=== PATIENT | female | born 1950 | race Caucasian/White ===

== ENCOUNTER → 2017-11-12 15:12 | Outpatient (CLI) | payer MEDICARE, BC, SELFPAY ==
--- NOTE | 2017-11-12 15:17 | RAD_ITS ---
STUDY: X-RAY - RIGHT ANKLE REASON FOR EXAM: Female, 67 years old. Right ankle pain. TECHNIQUE: 3 view(s) of the ankle. COMPARISON: None. FINDINGS: Prior open reduction and fixation of the distal fibular fracture utilizing a sideplate and screw fixation device. There is good alignment. Status post screw fixation of the medial malleolar fracture. Degenerative changes of the distal tibial talar joint. There is a 4.7 mm cystic change in the medial aspect of the dome of the talus. An osteochondral defect should be ruled out. The visualized subtalar, talonavicular, calcaneocuboid and tarsal articulations are normal. The soft tissue structures are unremarkable. RAD/Ankle min 3 Views IMPRESSION: Degenerative changes of the ankle. Status post ORIF of the distal fibula and medial malleolar fractures. Electronically Signed: Martin Person MD at 15:52 EST Tel [phone], Service support ,
== END ==
PROVIDERS: Family Provider Family Medicine; PCP Family Medicine; Visit Provider Family Medicine
DX: M25.571 Pain in right ankle and joints of right foot (principal)
CPT/HCPCS: 73610

== ENCOUNTER → 2018-06-05 15:29 | Outpatient (CLI) | payer MEDICARE, BC, SELFPAY | PROVIDERS: Family Provider Family Medicine; PCP Family Medicine; Visit Provider Family Medicine | DX: M54.5 Low back pain (principal) | CPT/HCPCS: 72110 ==

== ENCOUNTER 2018-08-17 04:10 | Emergency (ER) | payer MEDICARE, BC, SELFPAY ==
[2018-08-17 04:11] VITALS: BP 189/87; PULSE 68; RESP 15; TEMP 36.9; O2SAT 98; BMI 27.8
--- NOTE | 2018-08-17 04:33 | ED.VISSUMM ---
- ER Visit Summary Date of Service: 08/17/18 Chief Complaint: Back pain and sciatica History of Present Illness: The patient is a 68 F with a prior history of back pain, herniated disc, prior back surgeries who presents with back pain. 5 days ago she has been working outside. She is developed increased lower back pain since that time. She has had progressive radicular symptoms with pain initially going into the thigh and later down to her knee and now all the way down to her ankle. She also complains of some tingling feeling. She only has radiation down the left leg. She did not have any fall or trauma. She denies fevers abdominal pain urinary retention fecal incontinence. She denies recent illness otherwise. She has tried anti-inflammatories, some leftover prednisone, tramadol at home without significant relief. Physical Examination: Afebrile vitals are normal except blood pressure 189/87 Patient does appear uncomfortable Heart regular rate and rhythm Lungs are clear Abdomen soft Patient has lumbar paraspinal tenderness 5 out of 5 dorsiflexion, plantarflexion, extensor hallucis longus, extremities warm brisk capillary refill Test Results: Not indicated Emergency Department Course and Treatment: She presents with symptoms consistent with lumbar radiculopathy. She does not have signs or symptoms to suggest acute surgical pathology such as cauda equina syndrome or epidural abscess. I do not believe imaging would be of benefit at this time. She was given [place] here and a prescription for short course of the same. We discussed a prednisone burst which I would normally use however she has had mood problems with prednisone and states that she really cannot tolerate doses over 20 mg and that even then she can only take it for a couple of days so we deferred on prednisone. She was advised to follow-up with her primary care physician and she was discharged home. Treatment Plan: [] Disposition: Discharge Impression: Lumbar radiculopathy This note was generated with [employer] dictation software. It may contain incorrect words, spelling, and punctuation that were not noted in review of the chart prior to signing ED Disposition - Plan for ED Patient: Chief Complaint: Other, Pain/Inj Referrals: Josr Bryant MD [Primary Care Provider] -
--- NOTE | 2018-08-17 04:35 | ED.DEP ---
ED Disposition - Plan for ED Patient: Chief Complaint: Other, Pain/Inj Instructions: ED Sciatica Prescriptions: Hydrocodone Bitart/Apap 5-325 [[place] 5MG-325MG] 1 tab PO Q6H PRN PRN 3 Days #10 tab PRN Reason: Pain Referrals: Josr Bryant MD [Primary Care Provider] -
--- NOTE | 2018-08-17 04:36 | ED.DCSUM_ITS ---
- ER Visit Summary Date of Service: 08/17/18 Chief Complaint: Back pain and sciatica History of Present Illness: The patient is a 68 F with a prior history of back pain, herniated disc, prior back surgeries who presents with back pain. 5 days ago she has been working outside. She is developed increased lower back pain since that time. She has had progressive radicular symptoms with pain initially going into the thigh and later down to her knee and now all the way down to her ankle. She also complains of some tingling feeling. She only has radiation down the left leg. She did not have any fall or trauma. She denies fevers abdominal pain urinary retention fecal incontinence. She denies recent illness otherwise. She has tried anti-inflammatories, some leftover prednisone, tramadol at home without significant relief. Physical Examination: Afebrile vitals are normal except blood pressure 189/87 Patient does appear uncomfortable Heart regular rate and rhythm Lungs are clear Abdomen soft Patient has lumbar paraspinal tenderness 5 out of 5 dorsiflexion, plantarflexion, extensor hallucis longus, extremities warm brisk capillary refill Test Results: Not indicated Emergency Department Course and Treatment: She presents with symptoms consistent with lumbar radiculopathy. She does not have signs or symptoms to suggest acute surgical pathology such as cauda equina syndrome or epidural abscess. I do not believe imaging would be of benefit at this time. She was given [place] here and a prescription for short course of the same. We discussed a prednisone burst which I would normally use however she has had mood problems with prednisone and states that she really cannot tolerate doses over 20 mg and that even then she can only take it for a couple of days so we deferred on prednisone. She was adv ised to follow-up with her primary care physician and she was discharged home. Treatment Plan: [] Disposition: Discharge Impression: Lumbar radiculopathy This note was generated with [employer] dictation software. It may contain incorrect words, spelling, and punctuation that were not noted in review of the chart prior to signing ED Disposition - Plan for ED Patient: Chief Complaint: Other, Pain/Inj Referrals: Josr Bryant MD [Primary Care Provider] -
[2018-08-17] MEDS: HYDROcodone Bitartrate/Apap 5/325 Tablet PO (04:38)
[2018-08-17 04:48] VITALS: BP 189/87; PULSE 68; RESP 15; O2SAT 98
== END 2018-08-17 04:48 | disposition home or self-care (01) ==
LOC: ED 04:36
PROVIDERS: Emergency Provider Emergency Medicine; Family Provider Family Medicine; PCP Family Medicine
DX: M54.16 Radiculopathy, lumbar region (principal)
CPT/HCPCS: 99283

== ENCOUNTER → 2018-08-20 06:11 | Outpatient (CLI) | payer MEDICARE, BC, SELFPAY ==
--- NOTE | 2018-08-20 06:38 | MRI_ITS ---
STUDY: MRI LUMBAR SPINE WITHOUT CONTRAST REASON FOR EXAM: Female, 68 years old. Low back pain. TECHNIQUE: Standardized fat and water weighted pulse sequences were obtained in the sagittal and axial planes. COMPARISON: Radiographs of the lumbar spine dated June 05, 2018. FINDINGS: T12-L1: There is mild annular disk bulge and osteophyte complex. There is mild degenerative arthropathy of the facet joints. Bilateral neuroforamina are patent without MR evidence for nerve impingement. There is no significant acquired central canal stenosis. There is straightening of the normal lumbar lordosis. There is no substantial scoliosis. Normal conus medullaris that terminates at the L1 level. L1-2: There is a broad central disc protrusion and osteophyte complex. There is moderate degenerative arthropathy of the facet joints. There is mild central acquired canal stenosis. Neural foramina are bilaterally narrowed without evidence for nerve impingement. L2-3: There is narrowing of the disc with endplate osteophytes. There is a broad central disc protrusion. There is moderate degenerative arthropathy of the facet joints with mild acquired canal stenosis. Neural foramina are moderately narrowed without evidence for nerve impingement. L3-4: Patient appears to have had a left-sided laminectomy of L3. There is irregularity of the endplates that may represent sequela of small Schmorl's nodes. There appears to be a focal left central disc extrusion (and probable free disk fragment) extending posterior to the L4 vertebral body. Estimated size of the disc fragment is approximately 11.8 mm in size. There is moderate left-sided neural foraminal narrowing with potential impingement of the left L3 nerve root at the neural foramen. There is moderate annular disc bulge and osteophyte complex. The right neuroforamen is narrowed without evidence for nerve impingement. L4-5: There is narrowing of the disc. There is a broad central disc protrusion osteophyte complex. There is severe degenerative arthropathy of the facet joints with severe acquired canal stenosis and potential impingement of the cauda equina. The neural foramina are narrowed, severely on the left with potential impingement of left L4 nerve root at the neural foramen. L5-S1: There is narrowing of the disc. There is irregularity of the endplates. There is a broad central disc protrusion osteophyte complex. There is moderate degenerative arthropathy of the facet joints. The neural foramina are narrowed without evidence of nerve impingement. There is no significant central acquired canal stenosis. Normal visualized sacral ala. There appears to be a small lipoma of the filum at L4 level There is mild paraspinal muscular atrophy. There appear to be bilateral parapelvic renal cysts. MRI/Spine Lumbar (Routine) IMPRESSION: 1. Moderately severe multilevel degenerative disc disease and degenerative arthropathy of the lumbar spine with acquired canal stenosis, neural foraminal narrowing and potential nerve impingement as described. 2. Apparent disk extrusion at L3-4 with possible free fragment located posterior to the L4 vertebral body Electronically Signed: Mari Bautista MD at 11:51 EST , Service support ,
== END ==
PROVIDERS: Family Provider Family Medicine; PCP Family Medicine; Referring Provider Nurse Practitioner Family; Visit Provider Nurse Practitioner Family
DX: M54.30 Sciatica, unspecified side (principal)
CPT/HCPCS: 72148

== ENCOUNTER → 2018-10-10 13:13 | Outpatient (CLI) | payer MEDICARE, BC, SELFPAY ==
--- NOTE | 2018-10-10 13:17 | CT_ITS ---
STUDY: CT LUMBAR SPINE WITHOUT CONTRAST REASON FOR EXAM: Female, 68 years old. Back pain and left leg weakness. Patient fell 1 week ago. History of prior lumbar surgery. RADIATION DOSAGE (If Supplied By Facility): CTDIvol = ( 30.00 ) mGy, DLP = ( 847.15 ) mGycm TECHNIQUE: The patient was scanned in a multi detector CT scanner. High resolution transaxial imaging was performed. Images were obtained from T12 to the lower sacrum. Sagittal and coronal images were reconstructed. Individualized dose optimization techniques were used for this CT. COMPARISON: MRI of the lumbar spine of 08/20/2018. FINDINGS: Normal lumbar lordosis. There is mild dextroscoliosis. Is minimal anterolisthesis of L4 respect to L3 and L5. There is endplate spondylosis at multiple levels. There is no evidence of acute compression fracture deformity. The posterior elements appear intact. L1-2: Broad-based discogenic osteophyte formation diffusely indenting the thecal sac. Degenerative changes in facet joints. Borderline central spinal canal. No evidence of bony neural foramina stenosis. L2-3: Severe narrowing of the disc space. Calcification of the ligamenta flava. Broad-based discogenic osteophyte formation. Degenerative changes in facet joints. Narrowing of the central spinal canal and bilateral neural foramina worse on the right side. L3-4: Irregularity of the adjacent endplates. Degenerative changes in the facet joints. Hypertrophy of the ligamentum flavum. Evidence of laminectomy on the left side. Broad-based disc protrusion extending to the lateral recesses bilaterally. Narrowing of the neural foramina bilaterally. Borderline central spinal canal. L4-5: Severe hypertrophic degenerative changes of the facet joints. Broad-based discogenic degenerative osteophyte formation extending to the lateral recesses bilaterally. Hypertrophy of the ligamentum flavum. Severe narrowing of the central spinal canal and bilateral neural foramina. L5-S1: Narrowing of the disc space. Mild broad-based posterior degenerative discogenic osteophyte formation. No evidence of central spinal canal or neural foramina stenosis. Normal visualized paraspinous soft tissue structures. 1. CT/Spine Lumbar without Contrast IMPRESSION: Advanced multilevel degenerative changes of the lumbar spine as described above. No demonstrated acute fracture. If symptoms persist, repeat MRI of the lumbar spine might be of value. Electronically Signed: Clemente Fuentes MD at 13:59 EST Tel , Service support ,
--- NOTE | 2018-10-10 13:19 | RAD_ITS ---
STUDY: X-RAY - LUMBAR SPINE REASON FOR EXAM: Female, 68 years old. Low back pain TECHNIQUE: 3 view(s) of the lumbar spine were obtained. COMPARISON: 06/05/2018 FINDINGS: Normal lumbar lordosis. There is no substantial scoliosis. There is grade 1 spondylolisthesis of L4 on L5 that measures 3.7 mm on extension view and 5.4 mm on flexion view. There is multilevel endplate spondylosis of the lumbar vertebrae. There is multi-level degenerative disc disease with multi-level disc space narrowing. Multilevel facet arthropathy identified. There is atherosclerotic calcification of the abdominal aorta without a demonstrated aneurysm. RAD/L/S Spine Bending Flex/Ext IMPRESSION: 1. Grade 1 spondylolisthesis of L4-L5 mildly worse in flexion view. 2. Multilevel facet arthropathy and degenerative disc disease. Electronically Signed: Brad Leon MD at 8:11 EST , Service support ,
== END ==
PROVIDERS: Family Provider Family Medicine; PCP Family Medicine; Referring Provider Neurological Surgery; Visit Provider Neurological Surgery
DX: M51.26 Other intervertebral disc displacement, lumbar region (principal); M54.16 Radiculopathy, lumbar region
CPT/HCPCS: 72120; 72131

== ENCOUNTER → 2019-02-27 | Outpatient (CLI) | payer MEDICARE, BC, SELFPAY ==
--- NOTE | 2019-02-27 12:48 | BI_ITS ---
MAMMOGRAPHY - BILATERAL SCREENING REASON FOR EXAM: Female, 68 years old. Routine annual screening examination. PERTINENT HISTORY: Grandmother with breast cancer. TECHNIQUE: Digital bilateral breast mj (3D mammographic acquisition) in the CC and MLO projections. 2-D mediolateral oblique (MLO) and craniocaudad (CC) views of both breasts were obtained. CAD: Full Field Digital Mammography with Computer Added Detection was performed. COMPARISON: Comparison is made with prior outside mammogram dated August 20, 2017. FINDINGS: Breast Composition: The breasts are heterogeneously dense, which may obscure small masses. There are no dominant masses or suspicious calcifications. Stable small bilateral axillary lymph nodes. No other significant abnormalities are identified. There has been no significant change since the prior study. BI/SCREENING MAMM (CAD), BILAT IMPRESSION: Stable bilateral screening mammogram. Yearly follow-up mammogram recommended. (A) ASSESSMENT CATEGORY: BIRADS Category 2: Benign. A letter regarding these results will be sent to the patient by the facility within 30 days. Approximately 10% of breast cancers are not detected by mammography. A normal mammogram should not delay biopsy of a clinically suspicious abnormality. [id number] Electronically Signed: Martin Person, at 14:47 EDT , Service support ,
== END | disposition home or self-care (01) ==
LOC: OPBI 12:47
PROVIDERS: Family Provider Family Medicine; PCP Family Medicine; Referring Provider Family Medicine; Visit Provider Family Medicine
DX: Z12.31 Encounter for screening mammogram for malignant neoplasm of breast (principal)
CPT/HCPCS: 77063; 77067

== ENCOUNTER → 2019-03-12 | Outpatient (CLI) | payer MEDICARE, BC, SELFPAY ==
[2019-03-12 17:24] LABS: Absolute Neutrophil Count 4.1 X10^3/uL (2.0-7.7); Basophil# 0.02 X10^3/uL; Basophil% 0.3 % (0-1); Eosinophil# 0.15 X10^3/uL; Eosinophils% 1.9 % (0-5); Hematocrit 40.5 % (37-47); Hemoglobin 13.7 g/dl (12.0-15.0); Lymphocyte % 36.5 % (19-41); Mean Corp Hgb Conc 33.8 g/gl (32-36); Mean Corpuscular Hgb 30.4 pg (27.0-32.0); Mean Corpuscular Volume 89.8 fL (81-99); Mean Platelet Vol. 11.2 fl (6.2-12.0); Monocyte# 0.74 X10^3/uL; Monocyte% 9.3 % (0-10); Neutrophil # 4.13 X10^3/uL (2.7-7.7); Neutrophil % 51.9 % (47-70); Platelet Count 208 K/mm3 (150-450); RBC Distribution Width CV 12.9 % (11.6-14.6); RBC Distribution Width SD 42.1 fl (35.1-43.9); Red Blood Count 4.51 M/mm3 (4.2-5.4)
[2019-03-12 17:26] LABS: POSITIVE COUNT NO; POSITIVE DIFFERENTIAL NO; POSITIVE MORPHOLOGY NO
[2019-03-12 17:41] LABS: ALB/GLOB Ratio 1.1 RATIO (0.9-2.4); AST(SGOT) 16 U/L (15-37); Alanine Aminotransfer ALT/SGPT 31 U/L (13-56); Albumin, Serum 3.7 g/dL (3.2-5.0); Alkaline Phosphatase 90 U/L (45-117); Anion Gap 11 (5-15); BUN 35 mg/dL (7-18); BUN/Creat Ratio 29.9 RATIO (10-20); Calcium,Total 9.1 mg/dL (8.5-10.1); Chloride 108 mmol/L (98-107); Cholesterol 186 mg/dL (200); Creatinine, Serum 1.17 mg/dL (0.55-1.02); EST Glomerular Filtration Rate 49 mL/min (>60); Est Glom Filt Rate - Afr Amer 59 mL/min (>60); Globulin 3.3 g/dL (2.2-4.2); Glucose 120 mg/dL (74-106); High Density Lipoprotein 46 mg/dL; Potassium 4.1 mmol/L (3.5-5.1); Sodium Level 144 mmol/L (136-145); Thyroid Stim Hormone (TSH) 1.68 uIU/mL (0.358-3.74); Triglycerides 267 mg/dL; Very Low Density Lipoprotein 53 mg/dL (5-40)
== END | disposition home or self-care (01) ==
LOC: BFHLAB 15:25
PROVIDERS: Family Provider Family Medicine; PCP Family Medicine; Visit Provider Family Medicine
DX: E11.65 Type 2 diabetes mellitus with hyperglycemia (principal); E03.9 Hypothyroidism, unspecified
CPT/HCPCS: 36415; 80053; 80061; 84443; 85025

== ENCOUNTER 2019-04-27 12:28 | Emergency (ER) | payer MEDICARE, BC, SELFPAY ==
[2019-04-27 12:31] VITALS: BP 151/71; PULSE 82; RESP 17; TEMP 36.7; O2SAT 98; BMI 26.4
--- NOTE | 2019-04-27 14:59 | RAD_ITS ---
STUDY: X-RAY - CERVICAL SPINE REASON FOR EXAM: Female, 68 years old. Worsening neck pain TECHNIQUE: 4 view(s) of the cervical spine were obtained. COMPARISON: 01/31/2017 FINDINGS: Normal anterior atlantoaxial articulation. Normal odontoid process. There is reversal of the normal cervical lordosis. There is multi-level endplate spondylosis. There is multi-level degenerative disc disease with multilevel disc space narrowing. There is left foraminal stenosis at C4-5. There is right foraminal stenosis at C3-4 through C6-7 The soft tissue structures are unremarkable. RAD/Cerv Spine 2 or 3 Views IMPRESSION: Multilevel degenerative disease with foraminal stenosis as outlined above. Reversal of the normal lordotic curvature. No significant interval changes since the prior examination. Electronically Signed: Domenic Cantu MD at 15:31 EDT , Service support ,
--- NOTE | 2019-04-27 15:03 | ED.VISSUMM ---
- ER Visit Summary Date of Service: 04/27/19 Chief Complaint: Back pain History of Present Illness: The patient is a 68 F with a history of chronic back pain who follows with Dr. Song. She typically has lumbar pain and it radiates into her left leg. Today she is having neck pain that is radiating to her left arm. It feels similar to her prior lumbar pain, except now in her arm. She never had this pain before. The pain radiates down her left arm. It feels like her arm is about to burst. Patient denies any chest pain or shortness of breath. Denies any history of heart disease, PE, or aortic disease. Denies any history of lung disease. Denies chest pain or shortness of breath. She has been taking Ultram and hydrocodone with no improvement. She also takes [id number] remedies like Tylenol and Motrin, but they upset her stomach. Denies fevers. Denies any other associated symptoms. Denies trauma. Physical Examination: Afebrile vital signs unremarkable. Patient alert and oriented. No acute distress. Moving without difficulty. Head and neck atraumatic and normal inspection. HEENT exam unremarkable. Neck shows diffuse tenderness with light touch. The remainder of her spine is unremarkable. Patient has subjective decreased sensation in her left arm as well as paresthesias. Pulses strong and equal. Good range of motion. Good strength. Symmetric. Skin appears normal. Heart regular. Lungs clear. Abdomen soft and nontender. Test Results: Cervical x-rays pending. Emergency Department Course and Treatment: Patient has cervical spine pain with symptoms radiating down into her left arm. No trauma. Will check x-rays. Nothing to suggest cardiac, respiratory, or vascular pathology. Will treat with oxycodone while awaiting results. X-ray showed degenerative disc disease. There is multilevel findings. She also has bilateral foraminal stenosis. there is no significant interval change. On reevaluation, patient is slightly better. Will prescribe oxycodone and refer her back to her spine surgeon. She will also follow-up with her PCP. Treatment Plan: As above Disposition: Discharge Impression: 1. Left cervical radiculopathy This note was generated with [employer] software. It may contain incorrect words, spelling, and punctuation that were not noted in review of the chart prior to signing ED Disposition - Plan for ED Patient: Referrals: Miedel,Ene, MD [Primary Care Provider] -
[2019-04-27] MEDS: oxyCODONE 5 MG Tablet 10 MG PO (15:24)
--- NOTE | 2019-04-27 16:05 | ED.DEP ---
ED Disposition - Plan for ED Patient: Instructions: RADICULOPATHY, Cervical Prescriptions: Oxycodone [Oxyir] 5 mg PO Q6H PRN PRN 3 Days #12 tab PRN Reason: Pain Prescription Printed Referrals: Ene Angeles MD [Primary Care Provider] -
[2019-04-27 16:12] VITALS: BP 150/65; PULSE 70; RESP 16
== END 2019-04-27 16:13 | disposition home or self-care (01) ==
PROVIDERS: Emergency Provider Emergency Medicine; Family Provider Family Medicine; PCP Family Medicine
DX: M54.12 Radiculopathy, cervical region (principal); K21.9 Gastro-esophageal reflux disease without esophagitis; E11.9 Type 2 diabetes mellitus without complications; I10 Essential (primary) hypertension
CPT/HCPCS: 72040; 99283

== ENCOUNTER → 2019-06-12 | Outpatient (CLI) | payer MEDICARE, BC, SELFPAY | END | disposition home or self-care (01) | LOC: BFHLAB 13:50 | PROVIDERS: Family Provider Family Medicine; PCP Family Medicine; Visit Provider Family Medicine | DX: R30.0 Dysuria (principal) | CPT/HCPCS: 87086; 87088 ==

== ENCOUNTER → 2019-12-02 13:26 | Outpatient (CLI) | payer MEDICARE, BC, SELFPAY ==
[2019-12-02 16:07] LABS: Microalbumin,Random Urine 30.3 mg/L (NO RANGE EST.); Microalbumin:Creatinine Ratio 28.3 mg/g CRE (<30 mg/g CRE)
[2019-12-02 16:17] LABS: Hemoglobin A1c 6.7 % (4.2-6.3)
== END ==
PROVIDERS: PCP Family Medicine; Visit Provider Nurse Practitioner
DX: E11.9 Type 2 diabetes mellitus without complications (principal)
CPT/HCPCS: 36415; 82043; 82570; 83036

== ENCOUNTER → 2020-02-24 09:26 | Outpatient (CLI) | payer MEDICARE, BC, SELFPAY ==
[2020-02-24 12:33] LABS: Absolute Lymphocyte Count 2.47 X10^3/uL (0.83-4.51); Absolute Neutrophil Count 4.6 X10^3/uL (2.0-7.7); Basophil# 0.04 X10^3/uL; Basophil% 0.5 % (0-1); Eosinophil# 0.23 X10^3/uL; Eosinophils% 2.8 % (0-5); Hematocrit 40.7 % (37-47); Hemoglobin 13.1 g/dL (12.0-15.0); Lymphocyte # 2.47 X10^3/ul (4.0); Lymphocyte % 30.5 % (19-41); Mean Corp Hgb Conc 32.2 g/dL (32-36); Monocyte# 0.72 X10^3/uL; Monocyte% 8.9 % (0-10); NRBC Flagged by Analyzer 0 % (0-5); Neutrophil # 4.62 X10^3/uL (2.7-7.7); Neutrophil % 57.1 % (47-70); Platelet Count 230 K/mm3 (150-450); RBC Distribution Width CV 13.2 % (11.6-14.6); RBC Distribution Width SD 42.6 fl (35.1-43.9); Red Blood Count 4.52 M/mm3 (4.2-5.4); White Blood Count 8.1 K/mm3 (4.4-11.0)
[2020-02-24 12:52] LABS: Cholesterol 197 mg/dL (200); High Density Lipoprotein 48 mg/dL; Thyroid Stim Hormone (TSH) 1.46 uIU/mL (0.358-3.74); Triglycerides 237 mg/dL; Very Low Density Lipoprotein 47 mg/dL (5-40)
== END ==
PROVIDERS: PCP Family Medicine; Visit Provider Family Medicine
DX: E03.9 Hypothyroidism, unspecified (principal); E11.22 Type 2 diabetes mellitus with diabetic chronic kidney disease; N18.3 Chronic kidney disease, stage 3 (moderate); Z79.4 Long term (current) use of insulin
CPT/HCPCS: 36415; 80061; 84443; 85025

== ENCOUNTER → 2020-03-09 | Outpatient (CLI) | payer MEDICARE, BC, SELFPAY ==
[2020-03-09 15:54] LABS: CRP < 2.90 mg/L (0.0-3.0); Rheumatoid Factor < 10.0 IU/mL (<15)
[2020-03-09 15:57] LABS: Erythrocyte Sedimentation Rate 44 mm/hr (0-30)
[2020-03-12 12:57] LABS: CCP IgG Antibodies 5 units (0-19)
[2020-03-12 15:52] LABS: ANTINUCLEAR ANTIBODIES DIRECT Negative (Negative)
== END | disposition home or self-care (01) ==
LOC: BFHLAB 13:08
PROVIDERS: PCP Family Medicine; Visit Provider Family Medicine
DX: M13.0 Polyarthritis, unspecified (principal)
CPT/HCPCS: 36415; 85652; 86038; 86140; 86200; 86431

== ENCOUNTER → 2020-04-06 | Outpatient (CLI) | payer MEDICARE, BC, SELFPAY ==
--- NOTE | 2020-04-05 17:22 | BI_ITS ---
MAMMOGRAPHY - BILATERAL SCREENING REASON FOR EXAM: Female, 69 years old. Routine annual screening examination. PERTINENT HISTORY: Grandmother with breast cancer. TECHNIQUE: Digital bilateral breast rosalva (3D mammographic acquisition) in the CC and MLO projections. 2-D mediolateral oblique (MLO) and craniocaudad (CC) views of both breasts were obtained. CAD: Full Field Digital Mammography with Computer Added Detection was performed. COMPARISON: Comparison is made with prior examination dated February 27, 2019. FINDINGS: Breast Composition: The breasts are heterogeneously dense, which may obscure small masses. There are no dominant masses or suspicious calcifications. Stable benign-appearing bilateral axillary lymph nodes. No other significant abnormalities are identified. There has been no significant change since the prior study. BI/SCREEN MAMM (CAD) W/ROSALVA BILAT IMPRESSION: Stable bilateral screening mammogram. Yearly follow-up mammogram recommended. (A) ASSESSMENT CATEGORY: BIRADS Category 2: Benign. A letter regarding these results will be sent to the patient by the facility within 30 days. Approximately 10% of breast cancers are not detected by mammography. A normal mammogram should not delay biopsy of a clinically suspicious abnormality. [id number] Electronically Signed: Martin Person, at 8:20 EDT , Service support ,
== END | disposition home or self-care (01) ==
LOC: OPBI 08:50
PROVIDERS: PCP Family Medicine; Referring Provider Family Medicine; Visit Provider Family Medicine
DX: Z12.31 Encounter for screening mammogram for malignant neoplasm of breast (principal)
CPT/HCPCS: 77063; 77067

== ENCOUNTER → 2020-08-02 16:03 | Outpatient (CLI) | payer MEDICARE, BC, SELFPAY ==
--- NOTE | 2020-08-02 16:05 | US_ITS ---
PROCEDURE: ULTRASOUND OF THE FEMALE PELVIS - COMPLETE REASON FOR EXAM: Female, 70 years old. BLEEDING OFF AND ON X 1 WEEK TECHNIQUE: Transabdominal and Transvaginal TECHNICAL QUALITY: Adequate. COMPARISON: CT of abdomen and pelvis dated July 18, 2016 FINDINGS: The uterus is anteverted and is in a midline position. The uterus measures 4.9 x 4.0 x 3.0 cm. The uterine parenchyma is diffusely heterogeneous. 2 distinct fundal and uterine body intramural nodule/fibrosis are present measuring 1.3 cm and 0.8 cm in the submucosal region respectively. The endometrium measures 8 mm in thickness, and is heterogeneous . There is no demonstrated endometrial mass. Multiple nabothian cysts are seen in the cervix as well as some thinning of the cervical lining heterogeneity of concern. The right ovary is visualized. The right ovary measures cm. There is no right ovarian cyst or ovarian mass. There is no visualized right adnexal mass or complex lesion. The left ovary is visualized. The left ovary measures cm. There is no left ovarian cyst or ovarian mass. There is no visualized left adnexal mass or complex lesion. Normal color vascular flow and Doppler signal is demonstrated in both ovaries. There is no fluid in the cul-de-sac. US/Transvaginal Non- IMPRESSION: 1. The uterine parenchyma is diffusely heterogeneous. 2 distinct fundal and uterine body intramural nodule/fibrosis are present measuring 1.3 cm and 0.8 cm in the submucosal region respectively. 2. Multiple nabothian cysts are seen in the cervix as well as some thinning of the cervical lining heterogeneity of concern. 3. Heterogeneous thickened endometrium at 8 mm. Top normal in postmenopausal patients is 6 mm. 4. Gynecologic evaluation is recommended. MRI of the pelvis with and without contrast can also be obtained to further assess the pelvic structures. Electronically Signed: Silvio Basurto MD at 23:44 EDT , Service support ,
== END ==
PROVIDERS: PCP Family Medicine; Referring Provider Family Medicine; Visit Provider Family Medicine
DX: N93.9 Abnormal uterine and vaginal bleeding, unspecified (principal)
CPT/HCPCS: 76830

== ENCOUNTER → 2020-08-16 | Outpatient (CLI) | payer MEDICARE, BC, SELFPAY ==
--- NOTE | 2020-08-16 17:15 | EMB_PTH ---
PATIENT: BASSAM MALDONADO LOC: [facility] U#:[id number] AGE/SX: 70/F ROOM: RE08/16/[address]: Dr. Chase Bautista MD : 1950 BED: DIS: 08/16/2020 SPEC #: [id number] RECD: 08/16/20 17:43 STATUS: SONAL REAnne #: [id number] BARBARA: 08/16/20 17:[address]: Chase Bautista DEPT: SURGICAL PATHOLOGY RECD BY: Martita Ayala ENTERED: 08/17/20 08:55 SP TYPE: ENDOM BX/C JOSEPH DR: Dr. Ene Angeles MD Tissues: Endometrium, NOS Procedures: Surgery Specimen Level IV HEADER OPERATION: Endometrial biopsy PRE-OP DIAGNOSIS: Postmenopausal bleeding N95.0 TISSUE SUBMITTED: Endometrial biopsy MICROSCOPIC DIAGNOSIS Endometrial biopsy: Strips of benign endometrial epithelium and superficial fragment of benign endometrial tissue. Negative for hyperplasia. Fragments of benign ectocervical and endocervical epithelium, blood and mucous. TAYO:debi 08/18/20 MICROSCOPIC DESCRIPTION Slides are reviewed. GROSS DESCRIPTION Received in fixative is one container labeled with the patient's name and designated EMB. The specimen consists of multiple fragments of hemorrhagic mucoid tissue that in aggregate measure 3 x 2.5 x 0.3 cm. The specimen is totally submitted in one cassette. / TAYO:debi 08/17/20 TC:5 CPT: 23803
== END | disposition home or self-care (01) ==
LOC: LABSPEC 17:28
PROVIDERS: PCP Family Medicine; Visit Provider Obstetrics & Gynecology
DX: N95.0 Postmenopausal bleeding (principal)
CPT/HCPCS: 88305

== ENCOUNTER → 2021-04-11 17:20 | Outpatient (CLI) | payer MEDICARE, BC, SELFPAY ==
--- NOTE | 2021-04-11 16:31 | BI_ITS ---
MAMMOGRAPHY - BILATERAL SCREENING REASON FOR EXAM: Female, 70 years old. Routine annual screening examination. PERTINENT HISTORY: Grandmother with breast cancer. TECHNIQUE: Digital bilateral breast rosalva (3D mammographic acquisition) in the CC and MLO projections. 2-D mediolateral oblique (MLO) and craniocaudad (CC) views of both breasts were obtained. CAD: Full Field Digital Mammography with Computer Added Detection was performed. COMPARISON: Comparison is made with prior study dated 04/05/2020 and 02/27/2019 FINDINGS: Breast Composition: The breasts are heterogeneously dense, which may obscure small masses. There are no dominant masses or suspicious calcifications. Stable small benign-appearing bilateral axillary lymph nodes. No other significant abnormalities are identified. There has been no significant change since the prior study. BI/SCRN MAMM (CAD)W/ROSALVA BILAT IMPRESSION: Stable bilateral screening mammogram. Yearly follow-up mammogram recommended. (A) ASSESSMENT CATEGORY: BIRADS Category 2: Benign. A letter regarding these results will be sent to the patient by the facility within 30 days. Approximately 10% of breast cancers are not detected by mammography. A normal mammogram should not delay biopsy of a clinically suspicious abnormality. [id number] Electronically Signed: Martin Person MD at 8:04 EDT , Service support ,
== END ==
PROVIDERS: PCP Family Medicine; Referring Provider Family Medicine; Visit Provider Family Medicine
DX: Z12.31 Encounter for screening mammogram for malignant neoplasm of breast (principal)
CPT/HCPCS: 77063; 77067

== ENCOUNTER → 2022-04-03 | Outpatient (CLI) | payer MEDICARE, BC, SELFPAY ==
--- NOTE | 2022-04-03 13:21 | ECHOCS_ITS ---
Reason For Study: SYSTOLIC MURMUR Procedure This was a 2D Doppler, Color Flow transthoracic echocardiogram. The study was technically difficult. Contrast injection was performed. Exam performed in department. Left Ventricle Normal LV size. Sigmoid septum. Left ventricular systolic function is hyperdynamic. The estimated ejection fraction is 75 %. No evidence for diastolic dysfunction. No regional wall motion abnormalities noted. Right Ventricle Normal RV size. Normal systolic function. Atria Normal left atrium. Normal right atrium. No doppler evidence for ASD. Mitral Valve There is mild mitral annular calcification. Extension of the mitral annular calcification of the base of the posterior mitral valve leaflet. Mild focal mitral valve calcification of the anterior leaflet. Mild (1+) mitral valve insufficiency. Tricuspid Valve Normal tricuspid valve. Trivial tricuspid valve insufficiency. Unable to estimate RV systolic pressure/pulmonary artery pressure due to technically difficult study. Aortic Valve Trisinus/trileaflet aortic valve. Mild focal aortic valve calcification. Trivial aortic valve insufficiency. Pulmonic Valve The pulmonic valve is not well visualized. Great Vessels Normal sized aortic root. Pericardium/Pleural No pericardial effusion. Medication 22 gauge I.V. with prn adaptor inserted into right arm. Diluted definity 1.5ml given slow IV push to enhance endocardial definition. MMode/2D Measurements & Calculations Ao root diam: 3.1 cm LAV(MOD-sp4): 20.5 ml LVAd ap4: 30.3 cm2 LVLd ap4: 7.8 cm EDV(MOD-sp4): 96.4 ml EDV(sp4-el): 99.6 ml LVAs ap4: 10.2 cm2 LVLs ap4: 5.4 cm ESV(MOD-sp4): 17.3 ml ESV(sp4-el): 16.5 ml EF(MOD-sp4): 82.0 % EF(sp4-el): 83.4 % SV(MOD-sp4): 79.1 ml SV(sp4-el): 83.1 ml LA A4 area: 11.1 cm2 Doppler Measurements & Calculations MV E max luz marina: 71.7 cm/sec MV V2 max: 134.6 cm/sec MV P1/2t max luz marina: 112.2 cm/sec MV A max luz marina: 122.9 cm/sec MV max P.2 mmHg MV P1/2t: 74.8 msec MV E/A: 0.58 MV V2 mean: 78.7 cm/sec MV mean P.8 mmHg MV dec slope: 439.1 cm/sec2 MV V2 VTI: 32.3 cm MVA(P1/2t): 2.9 cm2 AI max luz marina: 334.0 cm/sec MR max luz marina: 438.8 cm/sec AI max P.6 mmHg MR max P.0 mmHg AI dec slope: 237.5 cm/sec2 AI P1/2t: 411.9 msec ECHO/Echo Complete W/ Contrast Interpretation Summary The study was technically difficult. Contrast injection was performed. Left ventricular systolic function is hyperdynamic. The estimated ejection fraction is 75 %. Sigmoid septum. There is mild mitral annular calcification. Extension of the mitral annular calcification of the base of the posterior mitr al valve leaflet. Mild focal mitral valve calcification of the anterior leaflet. Mild (1+) mitral valve insufficiency. Trivial tricuspid valve insufficiency. Mild focal aortic valve calcification. Trivial aortic valve insufficiency. Unable to estimate RV systolic pressure/pulmonary artery pressure due to techni rosa difficult study. No evidence for diastolic dysfunction. Late peaking spectral Doppler pattern near the LVOT area of approximately 2 m/s (peak gradient approximately 16 mmHg) appearing compatible with a hyperdynamic state. Ordering Physician: Ene Angeles Referring Physician: Ene nAgeles Performed By: Zuri Luna RCS
== END | disposition home or self-care (01) ==
LOC: CVS 13:15
PROVIDERS: PCP Family Medicine; Referring Provider Family Medicine; Visit Provider Family Medicine
DX: R01.1 Cardiac murmur, unspecified (principal)
CPT/HCPCS: 93306; Q9957; A4216; C8929

== ENCOUNTER → 2022-05-22 | Outpatient (CLI) | payer MEDICARE, BC, SELFPAY | END | disposition home or self-care (01) | PROVIDERS: PCP Family Medicine; Referring Provider Family Medicine; Visit Provider Family Medicine | DX: R19.7 Diarrhea, unspecified (principal) | CPT/HCPCS: 83630; 87493 ==

== ENCOUNTER → 2022-06-01 | Outpatient (CLI) | payer MEDICARE, BC, SELFPAY ==
--- NOTE | 2022-06-01 15:12 | BI_ITS ---
MAMMOGRAPHY - BILATERAL SCREENING REASON FOR EXAM: Female, 72 years old. Routine annual screening examination. PERTINENT HISTORY: Grandmother with breast cancer. TECHNIQUE: Digital bilateral breast rosalva (3D mammographic acquisition) in the CC and MLO projections. 2-D mediolateral oblique (MLO) and craniocaudad (CC) views of both breasts were obtained. CAD: Full Field Digital Mammography with Computer Added Detection was performed. COMPARISON: Comparison is made with prior study dated 04/11/2021 and 04/05/2020. FINDINGS: Breast Composition: The breasts are heterogeneously dense, which may obscure small masses. There are no dominant masses or suspicious calcifications. Stable small benign-appearing bilateral axillary lymph nodes. No other significant abnormalities are identified. There has been no significant change since the prior study. BI/SCRN MAMM (CAD)W/ROSALVA BILAT IMPRESSION: Stable bilateral screening mammogram. Yearly follow-up mammogram recommended. (A) ASSESSMENT CATEGORY: BIRADS Category 2: Benign. A letter regarding these results will be sent to the patient by the facility within 30 days. Approximately 10% of breast cancers are not detected by mammography. A normal mammogram should not delay biopsy of a clinically suspicious abnormality. [id number] Electronically Signed: Martin Person MD at 8:02 EDT ,
== END | disposition home or self-care (01) ==
LOC: OPBI 15:10
PROVIDERS: PCP Family Medicine; Visit Provider Family Medicine
DX: Z12.31 Encounter for screening mammogram for malignant neoplasm of breast (principal)
CPT/HCPCS: 77063; 77067

== ENCOUNTER → 2022-09-25 | Outpatient (CLI) | payer MEDICARE, BC, SELFPAY | END | disposition home or self-care (01) | LOC: LABSPEC 13:26 | PROVIDERS: PCP Family Medicine; Visit Provider Family Medicine | DX: N30.01 Acute cystitis with hematuria (principal) | CPT/HCPCS: 87086 ==

== ENCOUNTER → 2022-10-09 | Outpatient (CLI) | payer MEDICARE, BC, SELFPAY ==
--- NOTE | 2022-10-09 14:53 | CT_ITS ---
STUDY: CT Abdomen And Pelvis W/ Contrast Injection 10/09/2022 5:15 PM REASON FOR EXAM: Female, 72 years old. Bladder leakage, diarrhea x6 months, diabetes.pain ABD PAIN Individualized dose optimization techniques were used for this CT. COMPARISON: 07.18.16 TECHNIQUE: CT Abdomen And Pelvis W/ Contrast Injection Oral and amp; IV Readi-CAT and amp; 100mL Isovue-300 FINDINGS: There are atherosclerotic calcifications of visualized coronary arteries. The visualized portions of the heart are within normal limits. Normal liver. Normal gallbladder and extrahepatic biliary system. Normal spleen. Normal pancreas. Normal bilateral adrenal glands. No acute findings of the right kidney. No acute findings of the left kidney. Normal visualized stomach. Normal small intestine. Stool throughout the colon. There is non-visualization of the appendix. There are calcifications of the abdominal aorta. This is consistent for atherosclerotic disease. There is NO abdominal aortic aneurysm. Vascular workup can be obtained based on clinical correlation. Normal inferior vena cava. Subcentimeter mesenteric lymph nodes. Normal urinary bladder. Normal abdominal wall. There are diffuse degenerative changes of the visualized lumbar spine. Spinal fusion hardware. Laminectomy changes. CT/Abdomen/Pelvis WITH Contrast IMPRESSION: (NOT LISTED IN ORDER OF SIGNIFICANCE) There are no acute findings. Other findings as above. Electronically Signed: Lavon Clements MD at 17:17 EST ,
[2022-10-09 15:51] LABS: CREATININE FINGERSTICK 1.4 mg/dL (0.55-1.02)
== END | disposition home or self-care (01) ==
LOC: CT 14:52
PROVIDERS: PCP Family Medicine; Referring Provider Family Medicine; Visit Provider Family Medicine
DX: R10.9 Unspecified abdominal pain (principal); R19.4 Change in bowel habit; K92.1 Melena
CPT/HCPCS: 74177; Q9967

== ENCOUNTER → 2023-01-02 | Outpatient (CLI) | payer MEDICARE, BC, SELFPAY ==
[2023-01-02 17:28] LABS: Absolute Lymphocyte Count 2.65 X10^3/uL (0.83-4.51); Absolute Neutrophil Count 4.8 X10^3/uL (2.0-7.7); Basophil# 0.03 X10^3/uL; Basophil% 0.4 % (0-1); Eosinophil# 0.29 X10^3/uL; Eosinophils% 3.4 % (0-5); Lymphocyte # 2.65 X10^3/ul (0.83-4.51); Lymphocyte % 31.4 % (19-41); Mean Corp Hgb Conc 32.5 g/dL (32-36); Mean Corpuscular Volume 89.3 fL (81-99); Mean Platelet Vol. 11.4 fl (6.2-12.0); Monocyte# 0.68 X10^3/uL; Monocyte% 8.1 % (0-10); NRBC Flagged by Analyzer 0 % (0-5); Neutrophil # 4.77 X10^3/uL (2.7-7.7); Neutrophil % 56.5 % (47-70); Platelet Count 207 K/mm3 (150-450); RBC Distribution Width CV 12.9 % (11.6-14.6); RBC Distribution Width SD 41.9 fl (35.1-43.9); Red Blood Count 4.48 M/mm3 (4.2-5.4); White Blood Count 8.4 K/mm3 (4.4-11.0)
[2023-01-02 17:35] LABS: Erythrocyte Sedimentation Rate 22 mm/hr (0-30)
[2023-01-02 18:06] LABS: ALB/GLOB Ratio 1.1 RATIO (0.9-2.4); AST(SGOT) 17 U/L (15-37); Alanine Aminotransfer ALT/SGPT 18 U/L (13-56); Albumin, Serum 3.5 g/dL (3.2-5.0); Alkaline Phosphatase 104 U/L (45-117); Anion Gap 6 (5-15); BUN 21 mg/dL (7-18); BUN/Creat Ratio 18.9 RATIO (10-20); CRP 3.96 mg/L (0.0-3.0); Calcium,Total 8.8 mg/dL (8.5-10.1); Chloride 107 mmol/L (98-107); Creatinine, Serum 1.11 mg/dL (0.55-1.02); EST Glomerular Filtration Rate 51 mL/min (>60); Est Glom Filt Rate - Afr Amer 62 mL/min (>60); Globulin 3.3 g/dL (2.2-4.2); Glucose 169 mg/dL (74-106); LDH 169 U/L (84-246); Potassium 3.5 mmol/L (3.5-5.1); Protein, Total 6.8 g/dL (6.4-8.2); Sodium Level 142 mmol/L (136-145)
[2023-01-04 13:08] LABS: Anti-Centromere B Ab <0.2 AI (0.0-0.9); Anti-Chromatin <0.2 AI (0.0-0.9); Anti-Jo <0.2 AI (0.0-0.9); Anti-Scleroderma-70 AB <0.2 AI (0.0-0.9); RNP Ab <0.2 AI (0.0-0.9); SJOGREN'S Anti-SS-A test < 0.2 AI (0.0-0.9); SJOGREN'S Anti-SS-B test < 0.2 AI (0.0-0.9); Smith Ab <0.2 AI (0.0-0.9)
[2023-01-04 14:51] LABS: Anti-dsDNA Ab <1 IU/mL (0-9)
[2023-01-04 15:08] LABS: Endomysial Antibody IgA Negative (Negative)
[2023-01-04 15:10] LABS: Immunoglobulin A 91 mg/dL (64-422); t-Transglutaminase IgA <2 U/mL (0-3)
[2023-01-07 12:08] LABS: Albumin 3.3 g/dL (2.9-4.4); Alpha-1-Globulins 0.2 g/dL (0.0-0.4); Alpha-2-Globulins 0.9 g/dL (0.4-1.0); Cytoplasmic Ab (C-ANCA) <1:20 titer (Neg:<1:20); Gamma Globulin 0.8 g/dL (0.4-1.8); Immunoglobulin A 99 mg/dL (64-422); Immunoglobulin E 3 IU/mL (6-495); Immunoglobulin G 789 mg/dL (586-1602); Immunoglobulin M 32 mg/dL (26-217); PROEL- TOTAL PROTEIN 6.3 g/dL (6.0-8.5)
[2023-01-08 11:10] LABS: Perinuclear Ab (P-ANCA) <1:20 titer (Neg:<1:20)
== END | disposition home or self-care (01) ==
PROVIDERS: PCP Family Medicine; Referring Provider Internal Medicine Gastroenterology; Visit Provider Internal Medicine Gastroenterology
DX: R15.9 Full incontinence of feces (principal)
CPT/HCPCS: 36415; 80053; 82784; 82785; 83516; 83615; 84165; 85025; 85652; 86140; 86225; 86235; 86255; 86256; 86334

== ENCOUNTER → 2023-01-10 | Outpatient (CLI) | payer MEDICARE, BC, SELFPAY ==
[2023-01-14 11:13] LABS: Calprotectin, Stool 50 ug/g (0-120)
[2023-01-16 11:17] LABS: Pancreatic Elastase, Fecal 206 (>200)
== END | disposition home or self-care (01) ==
PROVIDERS: PCP Family Medicine; Referring Provider Internal Medicine Gastroenterology; Visit Provider Internal Medicine Gastroenterology
DX: R15.9 Full incontinence of feces (principal); K58.9 Irritable bowel syndrome, unspecified
CPT/HCPCS: 82653; 83630; 83993; 87177; 87209; 87329; 87493

== ENCOUNTER 2023-02-06 14:58 | Emergency (ER) | payer MEDICARE, BC, SELFPAY ==
[2023-02-06 15:01] VITALS: TEMP 37.4; BMI 28.9
[2023-02-06 15:05] VITALS: BP 167/83; PULSE 70; RESP 10; O2SAT 94
--- NOTE | 2023-02-06 15:16 | EDS_ITS ---
HPI History of Present Illness Chief Complaint: Chest Pain Informant: patient Onset/Context/Timing Onset: Today Timing: Intermittent Quality: Positive for Heaviness Current Severity: Gone Maximum Severity: Mild Narrative Narrative: Patient presents from GI office secondary to chest pain. She went for a GI visit today and reported to them that she been having intermittent chest heaviness throughout the day. In light of this she was sent to the emergency room for further evaluation. She states symptoms started about 8 hours ago. She describes a heaviness over her chest and feeling slightly breathy. She states she did do a lot of housework yesterday and initially thought she just overdone it. She did not have symptoms of chest pain or shortness of breath yesterday with her activity. She does report a recent fall where she injured her back. [facility] Medical History Anemia Chronic kidney disease (CKD) Depression Essential hypertension Hyperlipidemia Hypothyroidism MGUS (monoclonal gammopathy of unknown significance) Osteopenia Spinal stenosis Vitamin D deficiency Home Medications bupropion HCl 150 mg tablet,12 hr sustained-release 150 mg PO BID 01/31/16 [History Last Taken 01/30/16] gabapentin 600 mg tablet 600 mg PO TID 01/31/16 [History Last Taken 01/30/16] lisinopril 40 mg tablet 40 mg PO DAILY 01/31/16 [History Last Taken 01/30/16] lorazepam 0.5 mg tablet 0.5 mg PO BID PRN PRN Anxiety 01/31/16 [History Last Taken 01/30/16] multivitamin (Daily Multiple tablet) 1 ea PO DAILY 01/31/16 [History Last Taken 01/30/16] pravastatin 40 mg tablet 40 mg PO QHS 01/31/16 [History Last Taken 01/30/16] tramadol 50 mg tablet 50 mg PO Q4H PRN PRN Pain 01/31/16 [History Last Taken Unknown] indapamide 2.5 mg tablet 2.5 mg PO DAILY 07/18/16 [History Last Taken Unknown] omeprazole 40 mg capsule,delayed release 40 mg PO DAILY 07/18/16 [History Last Taken Unknown] potassium chloride 10 mEq tablet,extended release (Klor-Con) 10 meq PO BID 07/18/16 [History Last Taken Unknown] insulin aspar prot-insulin aspart 100 unit/mL (70-30) subcutaneous pen (Novolog Mix 70-30FlexPen U-100) 5 unit subcut BID 04/25/21 [History Last Taken Unknown] meclizine 25 mg tablet 25 mg PO DAILY 04/25/21 [History Last Taken Unknown] tizanidine 2 mg capsule 2 mg PO QHS 04/25/21 [History Last Taken Unknown] aspirin 81 mg tablet,delayed release (Adult Aspirin Regimen) 81 mg PO DAILY 07/04/22 [History Last Taken Unknown] ergocalciferol (vitamin D2) 1,250 mcg (50,000 unit) capsule 1,250 mcg PO QWEEK 07/04/22 [History Last Taken Unknown] levothyroxine 88 mcg tablet (Euthyrox) 88 mcg PO DAILY 07/04/22 [History Last Taken Unknown] meloxicam 15 mg tablet 15 mg PO DAILY 07/04/22 [History Last Taken Unknown] metoprolol succinate 50 mg tablet,extended release 24 hr (Toprol XL) 50 mg PO DAILY #90 tabs 07/04/22 [Rx Last Taken Unknown] naproxen 500 mg tablet 500 mg PO BID 07/04/22 [History Last Taken Unknown] sitagliptin phosphate 100 mg tablet (Januvia) 100 mg PO DAILY 07/04/22 [History Last Taken Unknown] gentamicin 0.3 % eye drops 2 drp ophthalmic (eye) Q4H #5 mL 10/21/22 [Rx Last Taken Unknown] dicyclomine 10 mg capsule 10 mg PO BID PRN abdominal discomfort #60 caps 12/12/22 [Rx Last Taken Unknown] Allergy/AdvReac Type Severity Reaction Status Date / Time ciprofloxacin [From Cipro] Allergy Other Verified 10/21/22 08:44 erythromycin base Allergy Rash Verified 10/21/22 08:44 hydrochlorothiazide Allergy Rash Verified 10/21/22 08:44 morphine Allergy Other Verified 10/21/22 08:44 verapamil Allergy Rash Verified 10/21/22 08:44 captopril [From Capoten] AdvReac Nausea/Vom/ Verified 10/21/22 08:44 Diarrhea carbamazepine [From Tegretol] AdvReac Nausea/Vom/ Verified 10/21/22 08:44 Diarrhea cephalexin [From Keflex] AdvReac Other Verified 10/21/22 08:44 glipizide [From Glucotrol] AdvReac Nausea/Vom/ Verified 10/21/22 08:44 Diarrhea nitrofurantoin AdvReac Upset Verified 10/21/22 08:44 Stomach sulfamethoxazole AdvReac Unknown Verified 10/21/22 08:44 [From Bactrim] trimethoprim [From Bactrim] AdvReac Unknown Verified 10/21/22 08:44 Family History Mother Hypertension Heart disease CHF Gastric ulcer Father Myocardial infarction, Onset Age: 62 Hypertension Heart disease Brother Kidney disease RENAL CANCER Grandmother Breast cancer Surgical History H/O arthroscopic knee surgery H/O dilation and curettage History of ankle surgery History of back surgery History of tonsillectomy Social History Smoking Status: Never smoker ROS ROS ED Constitutional Constitutional ED: Denies chills or fever(s) Eyes Eyes: Denies change in vision or discharge from eye(s) ENT ENT ED: Denies discharge from eye(s), rhinorrhea or sore throat Cardiovascular Cardiovascular: Reports chest pain; Denies palpitations Respiratory/Chest Respiratory/Chest: Reports dyspnea; Denies cough Gastrointestinal Gastrointestinal: Denies abdominal pain, diarrhea, nausea or vomiting Genitourinary Genitourinary ED: Denies dysuria Musculoskeletal Musculoskeletal: Denies back pain or extremity pain Integumentary Denies Abrasions or rash Neurologic Neurologic: Denies headache(s) or weakness Psychiatric Psychiatric: Denies anxiety or depression Allergic/Immunologic Allergic/Immunologic ED: Denies lip swelling or urticaria EXAM Physical Exam Const Vital Signs: 02/06/23 15:01 02/06/23 15:05 02/06/23 15:33 Temperature 99.3 F H Temperature Source Temporal Pulse Rate 70 Respiratory Rate 10 L Blood Pressure 167/83 H Blood Pressure Mean 111 Pulse Ox 94 Oxygen Delivery Method Room Air Room Air 02/06/23 16:41 Temperature Temperature Source Pulse Rate 66 Respiratory Rate 20 H Blood Pressure 151/75 H Blood Pressure Mean Pulse Ox 93 Oxygen Delivery Method Positive well nourished HEENT Reports moist mucous membranes Eyes PERRL and EOMs intact bilaterally Neck no lymphadenopathy Chest Wall inspection of chest normal and palpation of chest normal Resp normal respiratory effort and clear to auscultation bilaterally Cardio regular rate and regular rhythm GI normal to inspection, nondistended, normoactive bowel sounds Extremity normal to inspection Neuro oriented x3 and no sensory deficits noted Motor Exam: strength 5/5 throughout Psych mental status grossly normal Skin no rashes or lesions noted MDM MDM MDM Narrative Medical decision making narrative: Patient had taken 1 baby aspirin this morning. She was given 3 additional baby aspirin and placed on receivable executive. She denies any chest pain on arrival to the ER. EKG obtained to evaluate for cardiac arrhythmia/ischemia. Chest x-ray obtained to evaluate for acute lung pathology, cardiac size, or mediastinal abnormality. Labwork obtained to evaluate for leukocytosis, anemia, and electrolyte derangement. History & Record Review Discussion w/independent historian: Patient Additional record(s) reviewed:: Prior outpatient record Lab Data Attestation: I reviewed the patient's lab results. Labs: Laboratory Results - last 24 hr 02/06/23 02/06/23 15:20 15:20 WBC 11.2 H RBC 4.40 Hgb 13.0 Hct 40.3 MCV 91.6 MCH 29.5 MCHC 32.3 RDW Std Deviation 44.3 H RDW Coeff of Mignon 13.2 Plt Count 218 MPV 10.9 Immature Gran % (Auto) 0.400 Neut % (Auto) 64.8 Lymph % (Auto) 23.5 Crook % (Auto) 8.1 Eos % (Auto) 2.8 Baso % (Auto) 0.4 Absolute Neuts (auto) 7.3 Absolute Lymphs (auto) 2.62 Nucleated RBC % 0 Sodium 144 Potassium 4.1 Chloride 110 H Carbon Dioxide 27.0 Anion Gap 7 BUN 29 H Creatinine 1.20 H Estim Creat Clear Calc 34.54 Est GFR (MDRD) Af Amer 57 L Est GFR (MDRD) Non-Af 47 L BUN/Creatinine Ratio 24.2 H Glucose 92 Calcium 9.2 Troponin I High Sens 50 Radiography Chest X-Ray - ED: Read by ED Physician and - (Right mediastinal calcifications. No acute change.) Diagnostic Testing: Clinical Impression(s) from Imaging Studies Chest X-Ray 02/06/23 15:27 IMPRESSION: Stable examination. No acute abnormality is seen. Electronically Signed: Martin Person MD at 15:38 EDT , EKG Initial EKG: Attestation: I personally reviewed and interpreted this EKG as follows: Interpretation: Sinus Rhythm (Sinus at 70 with no acute ischemia.) Differential Diagnosis Chest pain/SOB: pulmonary embolism Reason(s) PE less likely: Positive for not tachycardic and not hypoxic and ACS ACS: Positive for no evidence of ACS based on cardiac biomarkers and EKG without ischemia Treatment and Re-Evaluation :: CBC was a white count 11.2 with normal differential. Hemoglobin normal at 13. Chemistry studies reveal a BUN of 29 and a creatinine of 1.20. This appears consistent with her baseline. Troponin is normal at 50. Chest x-ray per my interpretation reveals right mediastinal calcifications that appear unchanged when compared to prior. Radiology interpretation is reviewed and agrees. Her EKG reveals no evidence of acute ischemia. I did review patient's prior cardiology records. Patient was seen by Dr. Guadarrama in June 2022. At that time it appears that he was ordering a nuclear stress test because of her hypertensive heart disease. I do not see that this was ever performed. When I asked patient about this she states that she does remember him talking about it, however she was never called to have this scheduled. We discussed options of admitting her given her risk factors to obtain a stress test, repeating a 2-hour troponin, or discharge to home at this time with close follow-up and outpatient stress test. Patient has had greater than 6 hours of pain and I do not think a repeat 2-hour troponin is necessary. She would prefer outpatient follow-up. She will call Dr. Guadarrama's office tomorrow to get the nuc lear stress test scheduled. Patient has had no further chest pain while in the emergency room. Discharge Plan Triage Chief Complaint: Chest Pain ED Provider: Rose Dorman Dx/Rx/DC Orders Clinical Impression: Chest pain Instructions: ED Chest Pain, Uncertain Cause Prescriptions: No Action insulin asp prt-insulin aspart [Novolog Mix 70-30FlexPen U-100] 100 unit/mL (70-30) insulin pen 5 unit subcut BID tizanidine 2 mg capsule 2 mg PO QHS meclizine 25 mg tablet 25 mg PO DAILY levothyroxine [Euthyrox] 88 mcg tablet 88 mcg PO DAILY meloxicam 15 mg tablet 15 mg PO DAILY ergocalciferol (vitamin D2) 1,250 mcg (50,000 unit) capsule 1,250 mcg PO QWEEK naproxen 500 mg tablet 500 mg PO BID aspirin [Adult Aspirin Regimen] 81 mg tablet,delayed release (DR/EC) 81 mg PO DAILY metoprolol succinate [Toprol XL] 50 mg tablet extended release 24 hr 50 mg PO DAILY Qty: 90 3RF gentamicin 0.3 % drops 2 drp ophthalmic (eye) Q4H Qty: 5 0RF multivitamin [Daily Multiple] 1 EACH tablet 1 ea PO DAILY Label Comments: SUPPLEMENT bupropion HCl 150 MG tablet sustained-release 12 hr 150 mg PO BID Label Comments: DEPRESSION gabapentin 600 MG tablet 600 mg PO TID Label Comments: NERVE PAIN pravastatin 40 MG tablet 40 mg PO QHS Label Comments: CHOLESTEROL LOWERING tramadol 50 MG tablet 50 mg PO Q4H PRN PRN (Reason: Pain) Label Comments: PAIN lorazepam 0.5 MG tablet 0.5 mg PO BID PRN PRN (Reason: Anxiety) Label Comments: ANXIETY lisinopril 40 MG tablet 40 mg PO DAILY Label Comments: BLOOD PRESSURE Januvia 100 mg tablet 100 mg PO DAILY Label Comments: DIABETES indapamide 2.5 MG tablet 2.5 mg PO DAILY Label Comments: potassium chloride [Klor-Con 10] 10 MEQ tablet extended release 10 meq PO BID omeprazole 40 MG capsule,delayed release(DR/EC) 40 mg PO DAILY Label Comments: dicyclomine 10 mg capsule 10 mg PO BID PRN (Reason: abdominal discomfort) Qty: 60 0RF Primary Care Provider: Ene Angeles Referrals: Kulwinder Guadarrama MD [Med Staff - Active Staff] - As soon as possible Ene Angeles MD [Primary Care Provider] - Disposition Disposition: Home, Self Care Discharge Date/Time: 02/06/23 16:45
[2023-02-06 15:25] LABS: Absolute Lymphocyte Count 2.62 X10^3/uL (0.83-4.51); Absolute Neutrophil Count 7.3 X10^3/uL (2.0-7.7); Basophil# 0.04 X10^3/uL; Basophil% 0.4 % (0-1); Eosinophil# 0.31 X10^3/uL; Eosinophils% 2.8 % (0-5); Hematocrit 40.3 % (37-47); Lymphocyte # 2.62 X10^3/ul (0.83-4.51); Lymphocyte % 23.5 % (19-41); Mean Corp Hgb Conc 32.3 g/dL (32-36); Mean Corpuscular Hgb 29.5 pg (27.0-32.0); Mean Corpuscular Volume 91.6 fL (81-99); Mean Platelet Vol. 10.9 fl (6.2-12.0); Monocyte% 8.1 % (0-10); NRBC Flagged by Analyzer 0 % (0-5); Neutrophil # 7.25 X10^3/uL (2.7-7.7); Neutrophil % 64.8 % (47-70); Platelet Count 218 K/mm3 (150-450); RBC Distribution Width CV 13.2 % (11.6-14.6); RBC Distribution Width SD 44.3 fl (35.1-43.9); White Blood Count 11.2 K/mm3 (4.4-11.0)
--- NOTE | 2023-02-06 15:27 | RAD_ITS ---
STUDY: X-RAY CHEST REASON FOR EXAM: Female, 72 years old. Chest pain. TECHNIQUE: Single AP portable view of the chest. COMPARISON: Comparison is made with prior study dated January 31, 2016. FINDINGS: EKG electrodes are seen. The lungs are clear and expanded. There is no demonstrated pleural abnormality. Normal size heart. Stable calcified right hilar lymph nodes. Normal visualized pulmonary arteries. There is atherosclerotic calcification of the aortic arch with tortuosity. There are diffuse degenerative changes of the visualized thoracic spine. Normal visualized ribs, clavicles, and shoulders. There is no demonstrated abnormality of the visualized soft tissue structures of the upper abdomen. RAD/Chest 1 View (Portable) IMPRESSION: Stable examination. No acute abnormality is seen. Electronically Signed: Martin Person MD at 15:38 EDT ,
[2023-02-06] MEDS: Aspirin 81 MG TAB.CHEW 243 MG PO (15:31)
[2023-02-06 15:50] LABS: Anion Gap 7 (5-15); BUN 29 mg/dL (7-18); BUN/Creat Ratio 24.2 RATIO (10-20); Calcium,Total 9.2 mg/dL (8.5-10.1); Chloride 110 mmol/L (98-107); EST Glomerular Filtration Rate 47 mL/min (>60); Est Glom Filt Rate - Afr Amer 57 mL/min (>60); Estimated Creatinine Clearance 34.54 ml/min; Glucose 92 mg/dL (74-106); Potassium 4.1 mmol/L (3.5-5.1); Sodium Level 144 mmol/L (136-145); Troponin-I HS 50 pg/mL (3.0-54.0)
[2023-02-06 16:41] VITALS: BP 151/75; PULSE 66; RESP 20; O2SAT 93
== END 2023-02-06 16:45 | disposition home or self-care (01) ==
PROVIDERS: Emergency Provider Emergency Medicine; PCP Family Medicine; Visit Provider Emergency Medicine
DX: R07.9 Chest pain, unspecified (principal); I12.9 Hypertensive chronic kidney disease with stage 1 through stage 4 chronic kidney disease, or unspecified chronic kidney disease; E78.5 Hyperlipidemia, unspecified; N18.9 Chronic kidney disease, unspecified; R06.00 Dyspnea, unspecified
CPT/HCPCS: 71045; 80048; 84484; 85025; 93005; 99284; A4216

== ENCOUNTER → 2023-06-03 | Outpatient (CLI) | payer MEDICARE, BC, SELFPAY ==
[2023-06-03 12:55] LABS: AST(SGOT) 15 U/L (15-37); Alanine Aminotransfer ALT/SGPT 18 U/L (13-56); Albumin, Serum 3.4 g/dL (3.2-5.0); Alkaline Phosphatase 97 U/L (45-117); Anion Gap 7 (5-15); BUN 21 mg/dL (7-18); BUN/Creat Ratio 20.4 RATIO (10-20); Calcium,Total 9.1 mg/dL (8.5-10.1); Chloride 107 mmol/L (98-107); Cholesterol 188 mg/dL (200); Creatinine, Serum 1.03 mg/dL (0.55-1.02); EST Glomerular Filtration Rate 56 mL/min (>60); Est Glom Filt Rate - Afr Amer 67 mL/min (>60); Globulin 3.5 g/dL (2.2-4.2); Glucose 164 mg/dL (74-106); High Density Lipoprotein 42 mg/dL; Potassium 3.9 mmol/L (3.5-5.1); Protein, Total 6.9 g/dL (6.4-8.2); Sodium Level 141 mmol/L (136-145); Thyroid Stim Hormone (TSH) 1.74 uIU/mL (0.358-3.74); Triglycerides 223 mg/dL; Very Low Density Lipoprotein 45 mg/dL (5-40)
[2023-06-03 12:57] LABS: Microalbumin,Random Urine 46.4 mg/L (NO RANGE EST.); Microalbumin:Creatinine Ratio 26.5 mg/g CRE (<30 mg/g CRE)
== END | disposition home or self-care (01) ==
LOC: BFHLAB 08:13
PROVIDERS: PCP Family Medicine; Referring Provider Family Medicine; Visit Provider Family Medicine
DX: E11.9 Type 2 diabetes mellitus without complications (principal); E03.9 Hypothyroidism, unspecified; I10 Essential (primary) hypertension
CPT/HCPCS: 36415; 80053; 80061; 82043; 82570; 84443

== ENCOUNTER → 2023-06-12 | Outpatient (CLI) | payer MEDICARE, BC, SELFPAY ==
--- NOTE | 2023-06-12 15:53 | BI_ITS ---
MAMMOGRAPHY - BILATERAL SCREENING REASON FOR EXAM: Female, 73 years old. Routine annual screening examination. PERTINENT HISTORY: Grandmother with breast cancer. TECHNIQUE: Digital bilateral breast rosalva (3D mammographic acquisition) in the CC and MLO projections. 2-D mediolateral oblique (MLO) and craniocaudad (CC) views of both breasts were obtained. CAD: Full Field Digital Mammography with Computer Added Detection was performed. COMPARISON: Comparison is made with prior study dated June 01, 2022 and April 11, 2021. FINDINGS: Breast Composition: The breasts are heterogeneously dense, which may obscure small masses. There are no dominant masses or suspicious calcifications. Stable small benign-appearing bilateral axillary lymph nodes. No other significant abnormalities are identified. There has been no significant change since the prior study. BI/SCRN MAMM (CAD)W/ROSALVA BILAT IMPRESSION: Stable bilateral screening mammogram. Yearly follow-up mammogram recommended. (A) ASSESSMENT CATEGORY: BIRADS Category 2: Benign. A letter regarding these results will be sent to the patient by the facility within 30 days. Approximately 10% of breast cancers are not detected by mammography. A normal mammogram should not delay biopsy of a clinically suspicious abnormality. [id number] Electronically Signed: Martin Person MD at 9:09 EDT ,
== END | disposition home or self-care (01) ==
LOC: OPBI 15:51
PROVIDERS: PCP Family Medicine; Referring Provider Family Medicine; Visit Provider Family Medicine
DX: Z12.31 Encounter for screening mammogram for malignant neoplasm of breast (principal)
CPT/HCPCS: 77063; 77067

== ENCOUNTER 2023-06-27 10:08 | Emergency (ER) | payer MEDICARE, BC, SELFPAY ==
[2023-06-27 10:10] VITALS: BP 215/186; PULSE 99; RESP 18; TEMP 36.7; O2SAT 76
--- NOTE | 2023-06-27 10:35 | EDS_ITS ---
HPI History of Present Illness Chief Complaint: Shortness of Breath [facility] Medical History Anemia Chronic kidney disease (CKD) Depression Essential hypertension Hyperlipidemia Hypothyroidism MGUS (monoclonal gammopathy of unknown significance) Osteopenia Spinal stenosis Vitamin D deficiency Home Medications bupropion HCl 150 mg tablet,12 hr sustained-release 150 mg PO BID 01/31/16 [History Last Taken 01/30/16] gabapentin 600 mg tablet 600 mg PO TID 01/31/16 [History Last Taken 01/30/16] lisinopril 40 mg tablet 40 mg PO DAILY 01/31/16 [History Last Taken 01/30/16] lorazepam 0.5 mg tablet 0.5 mg PO BID PRN PRN Anxiety 01/31/16 [History Last Taken 01/30/16] multivitamin (Daily Multiple tablet) 1 ea PO DAILY 01/31/16 [History Last Taken 01/30/16] pravastatin 40 mg tablet 40 mg PO QHS 01/31/16 [History Last Taken 01/30/16] tramadol 50 mg tablet 50 mg PO Q4H PRN PRN Pain 01/31/16 [History Last Taken Unknown] indapamide 2.5 mg tablet 2.5 mg PO DAILY 07/18/16 [History Last Taken Unknown] omeprazole 40 mg capsule,delayed release 40 mg PO DAILY 07/18/16 [History Last Taken Unknown] potassium chloride 10 mEq tablet,extended release (Klor-Con) 10 meq PO BID 07/18/16 [History Last Taken Unknown] insulin aspar prot-insulin aspart 100 unit/mL (70-30) subcutaneous pen (Novolog Mix 70-30FlexPen U-100) 5 unit subcut BID 04/25/21 [History Last Taken Unknown] meclizine 25 mg tablet 25 mg PO DAILY 04/25/21 [History Last Taken Unknown] tizanidine 2 mg capsule 2 mg PO QHS 04/25/21 [History Last Taken Unknown] aspirin 81 mg tablet,delayed release (Adult Aspirin Regimen) 81 mg PO DAILY 07/04/22 [History Last Taken Unknown] ergocalciferol (vitamin D2) 1,250 mcg (50,000 unit) capsule 1,250 mcg PO QWEEK 07/04/22 [History Last Taken Unknown] levothyroxine 88 mcg tablet (Euthyrox) 88 mcg PO DAILY 07/04/22 [History Last Taken Unknown] meloxicam 15 mg tablet 15 mg PO DAILY 07/04/22 [History Last Taken Unknown] metoprolol succinate 50 mg tablet,extended release 24 hr (Toprol XL) 50 mg PO DAILY #90 tabs 07/04/22 [Rx Last Taken Unknown] naproxen 500 mg tablet 500 mg PO BID 07/04/22 [History Last Taken Unknown] sitagliptin phosphate 100 mg tablet (Januvia) 100 mg PO DAILY 07/04/22 [History Last Taken Unknown] gentamicin 0.3 % eye drops 2 drp ophthalmic (eye) Q4H #5 mL 10/21/22 [Rx Last Taken Unknown] dicyclomine 10 mg capsule 10 mg PO BID PRN abdominal discomfort #60 caps 12/12/22 [Rx Last Taken Unknown] Allergy/AdvReac Type Severity Reaction Status Date / Time ciprofloxacin [From Cipro] Allergy Other Verified 06/27/23 10:10 erythromycin base Allergy Rash Verified 06/27/23 10:10 hydrochlorothiazide Allergy Rash Verified 06/27/23 10:10 morphine Allergy Other Verified 06/27/23 10:10 verapamil Allergy Rash Verified 06/27/23 10:10 captopril [From Capoten] AdvReac Nausea/Vom/ Verified 06/27/23 10:10 Diarrhea carbamazepine [From Tegretol] AdvReac Nausea/Vom/ Verified 06/27/23 10:10 Diarrhea cephalexin [From Keflex] AdvReac Other Verified 06/27/23 10:10 glipizide [From Glucotrol] AdvReac Nausea/Vom/ Verified 06/27/23 10:10 Diarrhea nitrofurantoin AdvReac Upset Verified 06/27/23 10:10 Stomach sulfamethoxazole AdvReac Unknown Verified 06/27/23 10:10 [From Bactrim] trimethoprim [From Bactrim] AdvReac Unknown Verified 06/27/23 10:10 Family History Mother Hypertension Heart disease CHF Gastric ulcer Father Myocardial infarction, Onset Age: 62 Hypertension Heart disease Brother Kidney disease RENAL CANCER Grandmother Breast cancer Surgical History H/O arthroscopic knee surgery H/O dilation and curettage History of ankle surgery History of back surgery History of tonsillectomy Social History Smoking Status: Never smoker EXAM Physical Exam Const Vital Signs: 06/27/23 10:10 06/27/23 11:08 06/27/23 11:08 Temperature 98.1 F Temperature Source Temporal Pulse Rate 99 71 Respiratory Rate 18 21 H Respiratory Effort Respiratory Depth Respiratory Pattern Blood Pressure 215/186 H Blood Pressure Mean 195 Pulse Ox 76 99 99 Oxygen Delivery Method Room Air Room Air Room Air 06/27/23 11:54 06/27/23 11:55 Temperature Temperature Source Pulse Rate 68 Respiratory Rate 18 Respiratory Effort Normal Respiratory Depth Normal Respiratory Pattern Normal Blood Pressure 170/81 H Blood Pressure Mean 110 Pulse Ox 96 Oxygen Delivery Method Room Air MDM MDM MDM Narrative Medical decision making narrative: HISTORY OF PRESENT ILLNESS: 73-year-old female here with shortness of breath. States has been exposed to people with COVID. Notes chest tightness as well. The patient denies recent surgery in the last 4 weeks or immobilization in the last 3 days, denies previous diagnosis of DVT or PE, hemoptysis, unilateral leg swelling or malignancy with treatment the last 6 months or palliative. No e strogen use noted. REVIEW OF SYSTEMS: Pertinent positives: Shortness of breath, chest tightness Pertinent negatives: Bleeding, syncope, unilateral leg swelling PHYSICAL EXAM: Nursing triage notes reviewed, Vital signs reviewed Constitutional: please see mdm HENT: MMM Eyes: Pupils equal round and reactive to light, Extraocular muscles intact Neck: No stridor, no JVD, full neck ROM Lungs: Clear to auscultation, No wheezing or rales. No increased work of breathing, no conversational dyspnea, no accessory muscle use, no nasal flaring. No respiratory distress noted Heart: Regular rate and rhythm, No murmurs, No rubs and No gallops, 2+ distal pulses (radial, femoral, posterior tibial) in all extremities Abdomen: Soft, there is no tenderness, rigidity, rebound or guarding, no obvious peritoneal signs, no palpable pulsatile abdominal masses, no auscultated abdominal bruit : No CVAT Extremities: No edema Neuro: No focal neurological deficits, cranial nerves II through XII intact, 5/5 strength in all extremities. Intact sensation to light touch in all extremities, 2+ reflexes bilateral patella tendons. Normal gait. No ataxia. Skin: No rash or lesions noted MEDICAL DECISION MAKING: Chief Complaint: Shortness of breath, chest tightness External records reviewed: Imaging studies reviewed: Last echocardiogram reviewed from 2021 shows an ejection fraction of 75% with diastolic dysfunction Factors affecting care: Type 2 diabetes, hypertension, hyperlipidemia, CKD Social determinants of health: none History obtained from others: The patient's Consults: none ALL IMAGES (IF OBTAINED) HAVE BEEN PERSONALLY REVIEWED AND INTERPRETED BY MYSELF. MDM Narrative: Patient was initially hypertensive (improved after home blood pressure medication) otherwise hemodynamically stable, afebrile and nontoxic-appearing. Lungs were clear. I considered the following differential diagnosis: COVID-19, pneumonia, arrhythmia, ACS, CHF, COPD EKG with normal sinus rhythm, left ax deviation, normal intervals, no STEMI, similar to prior EKG CBC without leukocytosis, severe anemia, no thrombocytopenia. BMP with mild hypokalemia, no anion gap to suggest endorgan hypoperfusion, no SANDI Troponin is negative, no evidence of myocardial ischemia BNP within normal limits suggestive of no evidence of increased myocardial stretch I have personally reviewed the patient's chest x-ray. Chest x-ray is unremarkable for pulmonary edema, pneumothorax, pneumonia or focal cardiopulmonary abnormality. COVID-positive Patient's lungs are clear without wheezing unlikely be associated COPD. No signs of CHF here with a BNP within normal limits. EKG and troponin without evidence of myocardial ischemia. Patient COVID test is positive. Chest x-ray without evidence of pneumonia. Patient ambulated without significant hypoxia patient point for discharge home. The patient and/or family, caregivers express understanding. The patient and/or family, caregivers agrees with the plan. Shared decision making: I will have a discussion with the patient and or visitors regarding risk/benefits of further testing or admission. They will be made aware of of the risk/benefits inherent in this decision they will be given the opportunity to voice understanding. Total critical care time today provided was at least 0 minutes. This excludes separately billable procedures. Critical care time (if documented) is secondary to the patient having high probability of clinically significant/life threatening deterioration in the patient's condition which required my urgent intervention. Impression: 1. COVID-19 2. Hypokalemia 3. Dyspnea Dispo: Discharge Lab Data Labs: Laboratory Results - last 24 hr 06/27/23 06/27/23 10:45 10:53 WBC 6.5 RBC 4.74 Hgb 13.8 Hct 42.2 MCV 89.0 MCH 29.1 MCHC 32.7 RDW Std Deviation 41.8 RDW Coeff of Mignon 12.8 Plt Count 178 MPV 10.6 Immature Gran % (Auto) 0.200 Neut % (Auto) 59.3 Lymph % (Auto) 25.1 Stokes % (Auto) 11.5 H Eos % (Auto) 3.4 Baso % (Auto) 0.5 Absolute Neuts (auto) 3.8 Absolute Lymphs (auto) 1.62 Nucleated RBC % 0 Sodium 142 Potassium 3.2 L Chloride 108 H Carbon Dioxide 29.0 Anion Gap 5 BUN 20 H Creatinine 0.85 Est GFR (MDRD) Af Amer 84 Est GFR (MDRD) Non-Af 69 BUN/Creatinine Ratio 23.4 H Glucose 124 H Calcium 9.0 Troponin I High Sens 8 B-Natriuretic Peptide 20.3 POC Glucose 116 H Radiography Diagnostic Testing: Clinical Impression(s) from Imaging Studies Chest X-Ray 06/27/23 10:36 IMPRESSION: The lungs are clear. Calcified right hilar lymph nodes. Electronically Signed: Martin Person MD at 11:41 EDT , Discharge Plan Triage Chief Complaint: Shortness of Breath ED Provider: Juan Antonio Alberts Dx/Rx/DC Orders Instructions: Coronavirus Disease 2019 (COVID-19): Overview Prescriptions: No Action insulin asp prt-insulin aspart [Novolog Mix 70-30FlexPen U-100] 100 unit/mL (70-30) insulin pen 5 unit subcut BID tizanidine 2 mg capsule 2 mg PO QHS meclizine 25 mg tablet 25 mg PO DAILY levothyroxine [Euthyrox] 88 mcg tablet 88 mcg PO DAILY meloxicam 15 mg tablet 15 mg PO DAILY ergocalciferol (vitamin D2) 1,250 mcg (50,000 unit) capsule 1,250 mcg PO QWEEK naproxen 500 mg tablet 500 mg PO BID aspirin [Adult Aspirin Regimen] 81 mg tablet,delayed release (DR/EC) 81 mg PO DAILY metoprolol succinate [Toprol XL] 50 mg tablet extended release 24 hr 50 mg PO DAILY Qty: 90 3RF gentamicin 0.3 % drops 2 drp ophthalmic (eye) Q4H Qty: 5 0RF multivitamin [Daily Multiple] 1 EACH tablet 1 ea PO DAILY Patient Comments: SUPPLEMENT bupropion HCl 150 MG tablet sustained-release 12 hr 150 mg PO BID Patient Comments: DEPRESSION gabapentin 600 MG tablet 600 mg PO TID Patient Comments: NERVE PAIN pravastatin 40 MG tablet 40 mg PO QHS Patient Comments: CHOLESTEROL LOWERING tramadol 50 MG tablet 50 mg PO Q4H PRN PRN (Reason: Pain) Patient Comments: PAIN lorazepam 0.5 MG tablet 0.5 mg PO BID PRN PRN (Reason: Anxiety) Patient Comments: ANXIETY lisinopril 40 MG tablet 40 mg PO DAILY Patient Comments: BLOOD PRESSURE Januvia 100 mg tablet 100 mg PO DAILY Patient Comments: DIABETES indapamide 2.5 MG tablet 2.5 mg PO DAILY Patient Comments: potassium chloride [Klor-Con 10] 10 MEQ tablet extended release 10 meq PO BID omeprazole 40 MG capsule,delayed release(DR/EC) 40 mg PO DAILY Patient Comments: dicyclomine 10 mg capsule 10 mg PO BID PRN (Reason: abdominal discomfort) Qty: 60 0RF Primary Care Provider: Ene Angeles Referrals: Ene Angeles MD [Primary Care Provider] - Activity Restrictions/Additional Instructions: Thank you for trusting us with your care today! Please take Tylenol (2 pills, 650 mg), ibuprofen (2 pills, 400 mg) every 6 hours as needed for pain and fever control. Per CDC guidelines please isolate yourself meaning staying away from people if possible fo 5 days after symptom onset. After this time per CDC guidelines you should wear a mask or additional 5 days. A day 10 and you can assess her symptoms determine if mask wearing is still appropriate. Please return to the emergency department if your symptoms change or worsen. S pecifically if you develop chest pain, shortness of breath, if you lose consciousness Please follow with your primary care physician for further outpatient evaluation and management. Disposition Disposition: Home, Self Care
--- NOTE | 2023-06-27 10:36 | EKG12_ITS ---
Test Reason : GENERAL Blood Pressure : / mmHG Vent. Rate : 068 BPM Atrial Rate : 068 BPM P-R Int : 162 ms QRS Dur : 066 ms QT Int : 414 ms P-R-T Axes : 000 -10 092 degrees QTc Int : 440 ms Normal sinus rhythm Abnormal QRS-T angle, consider primary T wave abnormality Abnormal ECG Confirmed by SABIHA BENTLEY, RENETTA ([id number]), editorial clerk MARCELINA ÁLVAREZ ([id number]) on 07/02/2023 11:23:52 AM Referred By: Confirmed By:BEN LANDIS MD
--- NOTE | 2023-06-27 10:36 | RAD_ITS ---
STUDY: X-RAY CHEST REASON FOR EXAM: Female, 73 years old. Shortness of breath, chest tightness TECHNIQUE: Single AP portable view of the chest. COMPARISON: Comparison is made with prior study dated February 06, 2023. FINDINGS: EKG electrodes are seen. Mild elevation of the right hemidiaphragm. There is no demonstrated pleural abnormality. Normal size heart. Stable calcified right hilar lymph nodes. Normal visualized pulmonary arteries. Normal visualized aortic arch and descending thoracic aorta. There are diffuse degenerative changes of the visualized thoracic spine. Normal visualized ribs, clavicles, and shoulders. There is no demonstrated abnormality of the visualized soft tissue structures of the upper abdomen. RAD/Chest 1 View (Portable) IMPRESSION: The lungs are clear. Calcified right hilar lymph nodes. Electronically Signed: Martin Person MD at 11:41 EDT ,
[2023-06-27 10:56] LABS: Absolute Lymphocyte Count 1.62 X10^3/uL (0.83-4.51); Absolute Neutrophil Count 3.8 X10^3/uL (2.0-7.7); Basophil# 0.03 X10^3/uL; Basophil% 0.5 % (0-1); Eosinophil# 0.22 X10^3/uL; Eosinophils% 3.4 % (0-5); Hematocrit 42.2 % (37-47); Hemoglobin 13.8 g/dL (12.0-15.0); Lymphocyte # 1.62 X10^3/ul (0.83-4.51); Lymphocyte % 25.1 % (19-41); Mean Corp Hgb Conc 32.7 g/dL (32-36); Mean Corpuscular Hgb 29.1 pg (27.0-32.0); Mean Platelet Vol. 10.6 fl (6.2-12.0); Monocyte# 0.74 X10^3/uL; Monocyte% 11.5 % (0-10); NRBC Flagged by Analyzer 0 % (0-5); Neutrophil # 3.83 X10^3/uL (2.7-7.7); Neutrophil % 59.3 % (47-70); Platelet Count 178 K/mm3 (150-450); RBC Distribution Width CV 12.8 % (11.6-14.6); RBC Distribution Width SD 41.8 fl (35.1-43.9); Red Blood Count 4.74 M/mm3 (4.2-5.4); White Blood Count 6.5 K/mm3 (4.4-11.0)
[2023-06-27 11:08] VITALS: PULSE 71; RESP 21; O2SAT 99
[2023-06-27 11:11] LABS: Bedside Glucose 116 mg/dL (74-106)
[2023-06-27 11:17] LABS: BNP,B-Type NATRIURETIC PEPTIDE 20.3 pg/mL (0-100)
[2023-06-27 11:19] LABS: Anion Gap 5 (5-15); BUN 20 mg/dL (7-18); BUN/Creat Ratio 23.4 RATIO (10-20); Chloride 108 mmol/L (98-107); Creatinine, Serum 0.85 mg/dL (0.55-1.02); EST Glomerular Filtration Rate 69 mL/min (>60); Est Glom Filt Rate - Afr Amer 84 mL/min (>60); Glucose 124 mg/dL (74-106); Potassium 3.2 mmol/L (3.5-5.1); Sodium Level 142 mmol/L (136-145); Troponin-I HS 8 pg/mL (3.0-54.0)
[2023-06-27] MEDS: Lisinopril 40 MG Tablet PO (11:50)
[2023-06-27 11:54] VITALS: BP 170/81; PULSE 68; RESP 18; O2SAT 96
[2023-06-27 11:55] VITALS: O2SAT 96
[2023-06-27] MEDS: 0.9% Normal Saline (1000mL) 1,000 ML 999 ML IV (12:32)
[2023-06-27] MEDS: Ketorolac 15 MG/ML Vial IV (12:32)
[2023-06-27] MEDS: Potassium Chloride Oral Tablet 20 MEQ 40 MEQ PO (12:32)
[2023-06-27 13:17] VITALS: O2SAT 98
[2023-06-27 14:20] VITALS: BP 182/86; PULSE 86; RESP 16; O2SAT 97; BMI 28.0
== END 2023-06-27 14:23 | disposition home or self-care (01) ==
PROVIDERS: Emergency Provider Emergency Medicine; PCP Family Medicine; Visit Provider Emergency Medicine
DX: U07.1 COVID-19 (principal); J44.9 Chronic obstructive pulmonary disease, unspecified; E11.22 Type 2 diabetes mellitus with diabetic chronic kidney disease; E87.6 Hypokalemia; N18.9 Chronic kidney disease, unspecified; E78.5 Hyperlipidemia, unspecified
CPT/HCPCS: 71045; 80048; 82962; 83880; 84484; 85025; 87811; 93005; 96361; 96374; 99284; J7030; A4216

== ENCOUNTER → 2024-06-16 | Outpatient (CLI) | payer MEDICARE, BC, SELFPAY ==
--- NOTE | 2024-06-16 15:23 | BI_ITS ---
MAMMOGRAPHY - BILATERAL SCREENING REASON FOR EXAM: Female, 74 years old. Routine annual screening examination. PERTINENT HISTORY: Grandmother with breast cancer. TECHNIQUE: Digital bilateral breast rosalva (3D mammographic acquisition) in the CC and MLO projections. 2-D mediolateral oblique (MLO) and craniocaudad (CC) views of both breasts were obtained. CAD: Full Field Digital Mammography with Computer Added Detection was performed. COMPARISON: Comparison is made with prior study dated June 12, 2023 and June 01, 2022. FINDINGS: Breast Composition: The breasts are heterogeneously dense, which may obscure small masses. There are no dominant masses or suspicious calcifications. Stable benign-appearing bilateral axillary lymph nodes. No other significant abnormalities are identified. There has been no significant change since the prior study. BI/SCRN MAMM (CAD)W/ROSALVA BILAT IMPRESSION: Stable bilateral screening mammogram. Yearly follow-up mammogram recommended. (A) ASSESSMENT CATEGORY: BIRADS Category 2: Benign. A letter regarding these results will be sent to the patient by the facility within 30 days. Approximately 10% of breast cancers are not detected by mammography. A normal mammogram should not delay biopsy of a clinically suspicious abnormality. [id number] Electronically Signed: Martin Person MD at 8:24 EDT ,
== END | disposition home or self-care (01) ==
LOC: OPBI 15:21
PROVIDERS: PCP Family Medicine; Referring Provider Family Medicine; Visit Provider Family Medicine
DX: Z12.31 Encounter for screening mammogram for malignant neoplasm of breast (principal)
CPT/HCPCS: 77063; 77067

== ENCOUNTER → 2024-07-01 | Outpatient (CLI) | payer MEDICARE, BC, SELFPAY ==
--- NOTE | 2024-07-01 12:56 | RAD_ITS ---
STUDY: X-RAY - PELVIS AND BILATERAL HIPS REASON FOR EXAM: Female, 74 years old. Lower back pain. TECHNIQUE: AP view of the pelvis.? 2 views of the right hip, and 2 views of the left hip were obtained. COMPARISON: Pelvic x-ray dated July 09, 2017 FINDINGS: Normal bowel gas pattern. Moderate amount of feces in the colon. Osteopenia. Mild arthrosis of both sacroiliac joints. Mild arthrosis of the symphysis pubis. Moderate arthrosis of both hips. Posterior fusion from L3 to L5 with laminectomies and bone grafting. RAD/Hips B/L min 2 views w/ Pelvis IMPRESSION: Osteopenia with osteoarthritic changes as described. No acute abnormality. Electronically Signed: Vincent Smalls MD at 13:21 EDT ,
--- NOTE | 2024-07-01 12:58 | RAD_ITS ---
STUDY: X-RAY - LUMBAR SPINE REASON FOR EXAM: Female, 74 years old. Back pain. TECHNIQUE: 4 view(s) of the lumbar spine were obtained. COMPARISON: October 10, 2018 FINDINGS: Osteopenia. Normal lumbar lordosis. Mild levoscoliosis of the upper lumbar spine. 3 mm of anterolisthesis of L4 on L5. Diffuse moderate lower thoracic and lumbosacral facet sclerosis. Posterior fusion from L3 to L5 with laminectomies and bone grafting, new since the comparison study. Diffuse lower thoracic and lumbosacral intervertebral disc space narrowing with osteophytes most marked at T11-T12, T12-L1, L1-L2, L2-L3 and L5-S1. Marked vascular calcification. RAD/L/S Spine Min 4 Views IMPRESSION: Osteopenia with diffuse moderate to marked lower thoracic and lumbosacral spondylosis. New postsurgical changes from L3 to L5 with laminectomies and bone grafting, without complications. Electronically Signed: Vincent Smalls MD at 13:23 EDT ,
== END | disposition home or self-care (01) ==
LOC: MTRAD 12:54
PROVIDERS: PCP Family Medicine; Referring Provider Nurse Practitioner Family; Visit Provider Nurse Practitioner Family
DX: M54.50 Low back pain, unspecified (principal); M25.551 Pain in right hip; M25.552 Pain in left hip; N39.0 Urinary tract infection, site not specified
CPT/HCPCS: 72110; 73521; 87077; 87086; 87088; 87186

== ENCOUNTER 2024-07-05 15:36 | Observation (INO) | payer MEDICARE, BC, SELFPAY ==
[2024-07-05] VITALS (10 sets, daily range): BP systolic 136–239; BP diastolic 72–104; PULSE 73–87; RESP 16–22; TEMP 35.9–36.8; O2SAT 93–99; BMI 30.3; BMI 29.4
--- NOTE | 2024-07-05 15:47 | CT_ITS ---
STUDY: CT ABDOMEN AND PELVIS WITH CONTRAST REASON FOR EXAM: Female, 74 years old. Right lower quadrant pain RADIATION DOSAGE (If Supplied By Facility): CTDIvol = ( 16.41 ) mGy, DLP = ( 1072.47 ) mGycm TECHNIQUE: Transaxial images were obtained from the dome of the diaphragm to the symphysis pubis without oral contrast. IV 100mL Isovue-[id number] was administered. Sagittal and coronal images were reconstructed. Individualized dose optimization techniques were used for this CT. COMPARISON: None. FINDINGS: The visualized lung bases are unremarkable. The visualized portions of the heart are within normal limits. Normal liver. Normal gallbladder and extrahepatic biliary system. Normal spleen. Normal pancreas. Normal bilateral adrenal glands. Normal right kidney. Normal left kidney. Normal visualized stomach. Normal small intestine. Diverticulosis of the colon. The appendix is visualized and appears normal. Normal abdominal aorta. Normal inferior vena cava. Normal retroperitoneum. Normal urinary bladder. Normal abdominal wall. Degenerative vertebral changes. Surgical fusion at L3-L5. CT/Abdomen/Pelvis W IV Cont ONLY IMPRESSION: Colonic diverticulosis. Electronically Signed: Kalen Cotto DO at 17:09 EDT Reading Location ID and State: [facility] / [place] Tel [phone], Service support ,
--- NOTE | 2024-07-05 15:48 | ED.VIS.GI ---
HPI HPI - GI History of Present Illness Chief Complaint: Abd Pain Narrative Narrative: 74-year-old female past medical history of of hypertension, diabetes, has had previous back pain with surgery, presents with pain in her right lower quadrant, mainly her thigh and into her hip as well that she has had for the last week. She states she was seen by her primary care provider, where they did lab work to check out her appendix and gallbladder, and x-rays of her back. She was told that she has radiculopathy and pain coming from her back because of arthritis. This afternoon at 230, about an hour ago, she has pain radiating to her right thigh, into the right lower quadrant of her abdomen. She denies any fevers or chills. She was nauseated but has not vomited. No problems with bowel movements such as diarrhea, no dysuria or hematuria. No exacerbating or alleviating factors but she calls a sharp pain in her right side and abdomen radiating towards her thigh. [facility] Medical History Vitamin D deficiency Osteopenia Anemia Hyperlipidemia Spinal stenosis Depression Chronic kidney disease (CKD) MGUS (monoclonal gammopathy of unknown significance) Essential hypertension Hypothyroidism Home Medications ?Medication ?Instructions ?Recorded ?Last Taken ?Type gabapentin 600 mg tablet 600 mg PO TID 01/31/16 07/05/24 History lisinopril 40 mg tablet 40 mg PO DAILY 01/31/16 07/05/24 History lorazepam 0.5 mg tablet 0.5 mg PO BID PRN PRN Anxiety 01/31/16 07/05/24 History pravastatin 40 mg tablet 40 mg PO QHS 01/31/16 07/04/24 History tramadol 50 mg tablet 50 mg PO Q4H PRN PRN Pain 01/31/16 07/05/24 History indapamide 2.5 mg tablet 2.5 mg PO DAILY 07/18/16 07/05/24 History omeprazole 40 mg capsule,delayed 40 mg PO DAILY 07/18/16 07/05/24 History release potassium chloride 10 mEq 10 meq PO BID 07/18/16 07/05/24 History tablet,extended release (Klor-Con) insulin aspar prot-insulin aspart 26 unit subcut BID 04/25/21 07/05/24 History 100 unit/mL (70-30) subcutaneous pen (Novolog Mix 70-30FlexPen U-100) meclizine 25 mg tablet 25 mg PO DAILY 04/25/21 07/05/24 History tizanidine 2 mg capsule 2 mg PO Q8H PRN muscle spasticity 04/25/21 07/05/24 History aspirin 81 mg tablet,delayed 81 mg PO DAILY 07/04/22 07/05/24 History release (Adult Aspirin Regimen) ergocalciferol (vitamin D2) 1,250 1,250 mcg PO QWEEK 07/04/22 Unknown History mcg (50,000 unit) capsule levothyroxine 88 mcg tablet 88 mcg PO DAILY 07/04/22 07/05/24 History (Euthyrox) meloxicam 15 mg tablet 15 mg PO DAILY 07/04/22 07/05/24 History naproxen 500 mg tablet 500 mg PO BID 07/04/22 07/05/24 History sitagliptin phosphate 100 mg 100 mg PO DAILY 07/04/22 07/05/24 History tablet (Januvia) erythromycin 5 mg/gram (0.5 %) eye 1 applic EACH EYE DAILY 07/05/24 07/05/24 History ointment hydrocodone-acetaminophen 5-325mg 1 tab PO Q6H PRN 07/05/24 07/05/24 History 5mg-325mg ondansetron HCl 4 mg tablet 4 mg PO Q8H PRN 07/05/24 07/05/24 History prednisone 10 mg tablet 10 mg PO DAILY 07/05/24 07/05/24 History Allergy/AdvReac Type Severity Reaction Status Date / Time ciprofloxacin (From Cipro) Allergy Other Verified 07/05/24 15:38 erythromycin base Allergy Rash Verified 07/05/24 15:38 hydrochlorothiazide Allergy Rash Verified 07/05/24 15:38 morphine Allergy Other Verified 07/05/24 15:38 verapamil Allergy Rash Verified 07/05/24 15:38 captopril (From Capoten) AdvReac Nausea/Vom/ Verified 07/05/24 15:38 Diarrhea carbamazepine (From Tegretol) AdvReac Nausea/Vom/ Verified 07/05/24 15:38 Diarrhea cephalexin (From Keflex) AdvReac Other Verified 07/05/24 15:38 glipizide (From Glucotrol) AdvReac Nausea/Vom/ Verified 07/05/24 15:38 Diarrhea nitrofurantoin AdvReac Upset Verified 07/05/24 15:38 Stomach sulfamethoxazole (From AdvReac Unknown Verified 07/05/24 15:38 Bactrim) trimethoprim (From Bactrim) AdvReac Unknown Verified 07/05/24 15:38 Family History Mother Hypertension Heart disease CHF Gastric ulcer Father Myocardial infarction, Onset Age: 62 Hypertension Heart disease Brother Kidney disease RENAL CANCER Grandmother Breast cancer Surgical History H/O dilation and curettage History of back surgery History of ankle surgery H/O arthroscopic knee surgery History of tonsillectomy Social History Smoking Status: Never smoker ROS ROS ED ROS Narrative Constitutional: No fever, no chills. HEENT: No sore throat. No neck pain. No loss of vision. No rhinorrhea. Cardiovascular: No chest pain. No palpitations. No pedal edema. Respiratory: No cough, no shortness of breath. Abdominal: Right lower quadrant abdominal pain. Positive nausea. No vomiting. Genitourinary: No dysuria. No hematuria. Musculoskeletal: No myalgias. Positive back pain. Positive right thigh and right hip pain. Neurologic: No headaches. No dizziness. No lightheadedness. Skin: No rash. No change in color. Psychiatric: No depression. No anxiety. EXAM Physical Exam Narrative Exam Narrative: Afebrile. Vital signs noted. Regular rate and rhythm. Lungs clear to auscultation bilaterally. Abdomen soft with minimal tenderness palpation right flank, no rebound or guarding. Neurological examination shows her to be awake, alert and oriented. Straight leg raising on the right is negative. She has full range of motion of her hip and knee including flexion and extension. Able to ambulate and transfer in the emergency department. Const Vital Signs: 07/05/24 15:36 07/05/24 17:36 07/05/24 18:30 Temperature 97.2 F L 98 F Temperature Source Temporal Pulse Rate 75 87 78 Respiratory Rate 22 H 22 H Blood Pressure 136/103 H 192/100 H 186/104 H Blood Pressure Mean 114 130 131 Pulse Ox 99 93 Oxygen Delivery Method 07/05/24 18:32 Temperature 98 F Temperature Source Oral Pulse Rate 78 Respiratory Rate 22 H Blood Pressure 186/104 H Blood Pressure Mean 131 Pulse Ox 93 Oxygen Delivery Method Room Air MDM MDM MDM Narrative Medical decision making narrative: Differential diagnosis includes but not limited to radiculopathy versus acute appendicitis versus ureterolithiasis versus pyelonephritis. History and physical does not support ureterolithiasis or pyelonephritis as she is not having dysuria or hematuria. Her examination is more consistent with radicular pain. She has multiple allergies listed including morphine and to multiple antibiotics. She was given fentanyl for analgesia. With concern for any intra-abdominal pathology, CT of the abdomen and pelvis will be obtained as well as basic laboratory work. I reviewed her outpatient records as well. In review of her patient x-rays, she has postsurgical changes, but no acute fracture. I reviewed her laboratory work and she has normal white count of 10.7, hemoglobin normal at 14.1, hematocrit 44.0, platelet count 236. Sodium is normal at 143 with potassium 3.7, BUN slightly elevated at 20 with creatinine 0.91, glucose elevated appropriately at 117 with a normal anion gap of 6. Urinalysis shows 10-25 WBCs and leukocytes 100 but nitrates negative. There is rare bacteria. This was sent for culture. I will start her on Rocephin. CT of the abdomen and pelvis was obtained and there is diverticulosis but otherwise no acute process. Think she is probably having more radicular pain as she states it radiates to her hip/upper abdomen and to her right thigh. Initially she was given fentanyl. This controlled her pain slightly, but then she requested an anxiolytic as she usually takes 0.5 mg of lorazepam at home. She states her pain was 10 out of 10 so she was given 0.5 of Dilaudid with this. She now has nausea and upset stomach with the use of Dilaudid and Ativan. She will be given ondansetron. She is having intractable pain, and with her UTI symptoms with nausea, I will discuss patient with the hospitalist for observation. Patient is in stable condition. History & Record Review Additional record(s) reviewed:: Prior outpatient record Lab Data Attestation: I reviewed the patient's lab results. Labs: Laboratory Results - last 24 hr 09/29/24 09/29/24 15:48 16:45 WBC 10.7 RBC 4.86 Hgb 14.1 Hct 44.0 MCV 90.5 MCH 29.0 MCHC 32.0 RDW Std Deviation 43.1 RDW Coeff of Mignon 13.2 Plt Count 236 MPV 11.4 Immature Gran % (Auto) 0.400 Neut % (Auto) 58.8 Lymph % (Auto) 29.9 Ward % (Auto) 8.3 Eos % (Auto) 2.3 Baso % (Auto) 0.3 Absolute Neuts (auto) 6.3 Absolute Lymphs (auto) 3.19 Nucleated RBC % 0 Sodium 143 Potassium 3.7 Chloride 107 Carbon Dioxide 30.0 Anion Gap 6 BUN 20 H Creatinine 0.91 Estim Creat Clear Calc 52.72 Est GFR (MDRD) Af Amer 77 Est GFR (MDRD) Non-Af 64 BUN/Creatinine Ratio 21.9 H Glucose 117 H Calcium 9.8 Total Bilirubin 0.40 AST 17 ALT 19 Alkaline Phosphatase 107 Total Protein 7.4 Albumin 3.9 Globulin 3.5 Albumin/Globulin Ratio 1.1 Lipase 60 Urine Color Straw Urine Clarity Clear Urine pH 7.0 Ur Specific [place] 1.005 Urine Protein 15 H Urine Glucose (UA) 50 H Urine Ketones Negative Urine Occult Blood 10 H Urine Nitrite Negative Urine Bilirubin Negative Urine Urobilinogen Normal Ur Leukocyte Esterase 100 H Urine RBC 0 SEEN Urine WBC 10-25 SEEN Ur Squamous Epith Cells 0-5 SEEN Ur Renal Epithelial Cell 0-5 SEEN Urine Bacteria RARE Urine Mucus 0 SEEN Radiography Diagnostic Testing: Clinical Impression(s) from Imaging Studies Abdomen/Pelvis CT 07/05/24 15:47 IMPRESSION: Colonic diverticulosis. Electronically Signed: Kalen Cotto DO at 17:09 EDT Reading Location ID and State: [facility] / [place] Tel [phone], Service support , Management Discussion w/another healthcare provider: Hospitalist (Dr. Chadwick) Discharge Plan Dx/Rx/DC Orders Clinical Impression: Lumbar radiculopathy, right, Acute UTI, Intractable neuropathic pain of right lower extremity Disposition Disposition: Acute Care Hospital [facility] Discharge Date/Time: 07/05/24 19:44
[2024-07-05] MEDS: fentaNYL 100 MCG/2 ML Ampul 50 MCG IV (15:53)
[2024-07-05] MEDS: 0.9% Normal Saline (1000mL) 1,000 ML 999 ML IV (15:53)
[2024-07-05 15:55] LABS: Absolute Lymphocyte Count 3.19 X10^3/uL (0.83-4.51); Absolute Neutrophil Count 6.3 X10^3/uL (2.0-7.7); Basophil# 0.03 X10^3/uL; Basophil% 0.3 % (0-1); Eosinophil# 0.25 X10^3/uL; Eosinophils% 2.3 % (0-5); Hemoglobin 14.1 g/dL (12.0-15.0); Lymphocyte # 3.19 X10^3/ul (0.83-4.51); Lymphocyte % 29.9 % (19-41); Mean Corpuscular Volume 90.5 fL (81-99); Mean Platelet Vol. 11.4 fl (6.2-12.0); Monocyte# 0.89 X10^3/uL; Monocyte% 8.3 % (0-10); NRBC Flagged by Analyzer 0 % (0-5); Neutrophil # 6.27 X10^3/uL (2.7-7.7); Neutrophil % 58.8 % (47-70); Platelet Count 236 K/mm3 (150-450); RBC Distribution Width CV 13.2 % (11.6-14.6); RBC Distribution Width SD 43.1 fl (35.1-43.9); Red Blood Count 4.86 M/mm3 (4.2-5.4); White Blood Count 10.7 K/mm3 (4.4-11.0)
[2024-07-05 16:18] LABS: ALB/GLOB Ratio 1.1 RATIO (0.9-2.4); AST(SGOT) 17 U/L (15-37); Alanine Aminotransfer ALT/SGPT 19 U/L (13-56); Albumin, Serum 3.9 g/dL (3.2-5.0); Alkaline Phosphatase 107 U/L (45-117); Anion Gap 6 (5-15); BUN 20 mg/dL (7-18); BUN/Creat Ratio 21.9 RATIO (10-20); Calcium,Total 9.8 mg/dL (8.5-10.1); Chloride 107 mmol/L (98-107); Creatinine, Serum 0.91 mg/dL (0.55-1.02); EST Glomerular Filtration Rate 64 mL/min (>60); Est Glom Filt Rate - Afr Amer 77 mL/min (>60); Estimated Creatinine Clearance 52.72 ml/min; Globulin 3.5 g/dL (2.2-4.2); Glucose 117 mg/dL (74-106); Lipase 60 U/L (13-75); Potassium 3.7 mmol/L (3.5-5.1); Protein, Total 7.4 g/dL (6.4-8.2); Sodium Level 143 mmol/L (136-145)
[2024-07-05 16:53] LABS: Mucous, Urine 0 SEEN /hpf (<or=2+); Red Blood Cells-Urine 0 SEEN /hpf (0-5)
[2024-07-05 16:55] LABS: Color, Urine Straw (Yellow); Glucose, Dipstick 50 mg/dl (Normal); Ketone-Dipstick Negative (Negative); Leukocyte Esterase-Dipstick 100 /ul (Negative); Nitrite-Dipstick Negative (Negative); Occult Blood-Urine 10 /ul (Negative); Protein-Dipstick 15 mg/dl (Negative); Specific Gravity, Urine 1.005 (1.002-1.030); Urine Bilirubin Dipstick Negative (Negative); Urine Clarity Clear (Clear); Urine Urobilinogen Normal (Normal)
[2024-07-05 17:12] LABS: Bacteria RARE /hpf (None Seen); Renal Epithelial Cells 0-5 SEEN /hpf (0-5); Squamous Epithelial Cells - UA 0-5 SEEN /hpf (5-10); White Blood Cells 10-25 SEEN /hpf (0-5)
[2024-07-05] MEDS: HYDROmorphone 0.5 MG/0.5 ML SYRINGE IV (17:25)
[2024-07-05] MEDS: LORazepam 2 MG/ML Syringe 0.5 MG IV (17:25)
[2024-07-05] MEDS: Ondansetron 4 MG/2 ML Vial IV (18:26)
--- NOTE | 2024-07-05 18:33 | HP.PCM.HOS_ITS ---
[facility] - General General Date of Admission: 07/05/24 Date of Service: 07/05/24 Chief Complaint: Intractable low back pain with radiculopathy HPI Narrative BASSAM NASH, is a 74 F who presented to [facility] ED on 07/05/2024 with worsening low back pain with radiculopathy. Saw patient at bedside in the ED, present. Patient was in mild distress due to ongoing discomfort but was otherwise answering questions appropriately and conversing normally. Patient has history of low back pain and had an L3-5 lumbar fusion procedure done in 2020 at the [facility]. She apparently had an involved hospital course at that time but since then had been doing fairly well from a back pain standpoint. However, for the past 2 months she has noticed worsening pain primarily in the right low back to flank area wrapping around to the hip and into the groin. It significantly worsened about 1 week ago. Patient had some abdominal pain with this and was concerned for a possible abdominal or urinary etiology for the pain. Saw her primary care doctor this week who noted low concern for any abdominal issues based on physical exam and suspected worsening low back pain with radiculopathy. X-ray lumbar spine on 07/01 showed osteopenia with diffuse moderate to marked lower thoracic and lumbosacral spondylosis with L3-5 laminectomy and bone grafting noted. X-ray hip/pelvis on 07/01 showed moderate arthrosis of both hips and moderate amount of feces in the colon, was otherwise unremarkable. Given concern for abdominal issues on presentation here she had a CT abdomen pelvis done that showed only colonic diverticulosis with no other concerning findings. UA showed 100 leukocyte esterase but negative nitrites and rare bacteria. She was given doses of fentanyl and Dilaudid for the pain. Had some relief of pain but these opiates caused significant nausea for her. Nausea was somewhat relieved with Zofran. Patient and were concerned about going home given the ongoing pain not well-controlled with medication, so hospitalist was contacted for admission. Patient was recently prescribed tramadol and states this has been moderately helpful for the pain. She was given a Toradol shot about 1 week ago and states this was also helpful. She has never seen pain medicine or had any steroid injections of the low back before. Patient's blood pressure was running high in the ED in the 180s to 200s systolic. She did report taking her home blood pressure medications this morning but states her blood pressure has run high in the past when she is in pain. Patient was given a dose of IV hydralazine and will be admitted for further management. [facility] Medical History Vitamin D deficiency Osteopenia Anemia Hyperlipidemia Spinal stenosis Depression Chronic kidney disease (CKD) MGUS (monoclonal gammopathy of unknown significance) Essential hypertension Hypothyroidism Home Medications ?Medication ?Instructions ?Recorded ?Last Taken ?Type gabapentin 600 mg tablet 600 mg PO TID 01/31/16 07/05/24 History lisinopril 40 mg tablet 40 mg PO DAILY 01/31/16 07/05/24 History lorazepam 0.5 mg tablet 0.5 mg PO BID PRN PRN Anxiety 01/31/16 07/05/24 History pravastatin 40 mg tablet 40 mg PO QHS 01/31/16 07/04/24 History tramadol 50 mg tablet 50 mg PO Q4H PRN PRN Pain 01/31/16 07/05/24 History indapamide 2.5 mg tablet 2.5 mg PO DAILY 07/18/16 07/05/24 History omeprazole 40 mg capsule,delayed 40 mg PO DAILY 07/18/16 07/05/24 History release potassium chloride 10 mEq 10 meq PO BID 07/18/16 07/05/24 History tablet,extended release (Klor-Con) insulin aspar prot-insulin aspart 26 unit subcut BID 04/25/21 07/05/24 History 100 unit/mL (70-30) subcutaneous pen (Novolog Mix 70-30FlexPen U-100) meclizine 25 mg tablet 25 mg PO DAILY 04/25/21 07/05/24 History tizanidine 2 mg capsule 2 mg PO Q8H PRN muscle spasticity 04/25/21 07/05/24 History aspirin 81 mg tablet,delayed 81 mg PO DAILY 07/04/22 07/05/24 History release (Adult Aspirin Regimen) ergocalciferol (vitamin D2) 1,250 1,250 mcg PO QWEEK 07/04/22 Unknown History mcg (50,000 unit) capsule levothyroxine 88 mcg tablet 88 mcg PO DAILY 07/04/22 07/05/24 History (Euthyrox) meloxicam 15 mg tablet 15 mg PO DAILY 07/04/22 07/05/24 History naproxen 500 mg tablet 500 mg PO BID 07/04/22 07/05/24 History sitagliptin phosphate 100 mg 100 mg PO DAILY 07/04/22 07/05/24 History tablet (Januvia) erythromycin 5 mg/gram (0.5 %) eye 1 applic EACH EYE DAILY 07/05/24 07/05/24 History ointment hydrocodone-acetaminophen 5-325mg 1 tab PO Q6H PRN 07/05/24 07/05/24 History 5mg-325mg ondansetron HCl 4 mg tablet 4 mg PO Q8H PRN 07/05/24 07/05/24 History prednisone 10 mg tablet 10 mg PO DAILY 07/05/24 07/05/24 History Allergy/AdvReac Type Severity Reaction Status Date / Time ciprofloxacin (From Cipro) Allergy Other Verified 07/05/24 15:38 erythromycin base Allergy Rash Verified 07/05/24 15:38 hydrochlorothiazide Allergy Rash Verified 07/05/24 15:38 morphine Allergy Other Verified 07/05/24 15:38 verapamil Allergy Rash Verified 07/05/24 15:38 captopril (From Capoten) AdvReac Nausea/Vom/ Verified 07/05/24 15:38 Diarrhea carbamazepine (From Tegretol) AdvReac Nausea/Vom/ Verified 07/05/24 15:38 Diarrhea cephalexin (From Keflex) AdvReac Other Verified 07/05/24 15:38 glipizide (From Glucotrol) AdvReac Nausea/Vom/ Verified 07/05/24 15:38 Diarrhea nitrofurantoin AdvReac Upset Verified 07/05/24 15:38 Stomach sulfamethoxazole (From AdvReac Unknown Verified 07/05/24 15:38 Bactrim) trimethoprim (From Bactrim) AdvReac Unknown Verified 07/05/24 15:38 Family History Mother Hypertension Heart disease CHF Gastric ulcer Father Myocardial infarction, Onset Age: 62 Hypertension Heart disease Brother Kidney disease RENAL CANCER Grandmother Breast cancer Surgical History H/O dilation and curettage History of back surgery History of ankle surgery H/O arthroscopic knee surgery History of tonsillectomy Social History Smoking Status: Never smoker ROS Constitutional Constitutional: Denies chills, fatigue, fever(s) or weakness Eyes Eyes: Denies change in vision Cardiovascular Cardiovascular: Denies chest pain Respiratory/Chest Respiratory/Chest: Denies shortness of breath at rest Gastrointestinal Gastrointestinal: Reports abdominal pain and nausea; Denies constipation, diarrhea or vomiting Genitourinary Genitourinary: Denies burning urination, dysuria, urinary frequency or urinary urgency Musculoskeletal Musculoskeletal: Reports back pain; Denies joint pain, joint stiffness or myalgias Neurologic Neurologic: Reports paresthesias; Denies dizziness, focal weakness, headache(s), numbness or tingling Vital Signs Vital Signs Vital Signs: 07/05/24 15:36 07/05/24 17:36 07/05/24 18:30 Temperature 97.2 F L 98 F Temperature Source Temporal Pulse Rate 75 87 78 Respiratory Rate 22 H 22 H Blood Pressure 136/103 H 192/100 H 186/104 H Blood Pressure Mean 114 130 131 Pulse Ox 99 93 Oxygen Delivery Method 07/05/24 18:32 Temperature 98 F Temperature Source Oral Pulse Rate 78 Respiratory Rate 22 H Blood Pressure 186/104 H Blood Pressure Mean 131 Pulse Ox 93 Oxygen Delivery Method Room Air Weight Weight: 77.7 kg Body Mass Index (BMI) 30.3 Physical Exam Const alert, oriented x3 and average body habitus Constitutional Narrative: Elderly female, overweight, mildly fatigued appearing, appears mildly uncomfortable due to ongoing pain, otherwise laying back in bed and conversing normally. General Appearance: cooperative HEENT normocephalic, head/scalp atraumatic, hearing grossly normal bilaterally, nasal mucous membranes and turbinates normal and moist oral mucous membranes Eyes PERRL, EOMs intact bilaterally and conjunctivae normal Neck full ROM Chest inspection of chest normal Resp normal respiratory effort, normal air movement, no use of accessory muscles and clear to auscultation bilaterally Cardio regular rate, regular rhythm, no murmurs and peripheral pulses 2+ throughout GI normal to inspection, nondistended, normoactive bowel sounds, soft to palpation, non-tender and non-distended Back/Spine normal ROM Back/Spine Narrative: Mild right lumbar paramuscular tenderness to palpation diffusely. Negative straight leg raise on right. Normal range of motion in the low back, right hip and right leg. Extremity normal to inspection, full ROM and no pedal edema Skin no rashes or lesions noted Neuro moves all extremities and no focal motor deficits Speech: speech normal Motor Exam: strength 5/5 throughout Psych mental status grossly normal Mood & Affect: anxious Results Lab / Micro Data 07/05/24 15:48 07/05/24 15:48 Labs: Laboratory Results - last 24 hr 07/05/24 15:48: WBC 10.7, RBC 4.86, Hgb 14.1, Hct 44.0, MCV 90.5, MCH 29.0, MCHC 32.0, RDW Std Deviation 43.1, RDW Coeff of Mignon 13.2, Plt Count 236, MPV 11.4, Immature Gran % (Auto) 0.400, Neut % (Auto) 58.8, Lymph % (Auto) 29.9, Patrick % (Auto) 8.3, Eos % (Auto) 2.3, Baso % (Auto) 0.3, Absolute Neuts (auto) 6.3, Absolute Lymphs (auto) 3.19, Nucleated RBC % 0, Sodium 143, Potassium 3.7, Chloride 107, Carbon Dioxide 30.0, Anion Gap 6, BUN 20 H, Creatinine 0.91, Estim Creat Clear Calc 52.72, Est GFR (MDRD) Af Amer 77, Est GFR (MDRD) Non-Af 64, B UN/Creatinine Ratio 21.9 H, Glucose 117 H, Calcium 9.8, Total Bilirubin 0.40, AST 17, ALT 19, Alkaline Phosphatase 107, Total Protein 7.4, Albumin 3.9, Globulin 3.5, Albumin/Globulin Ratio 1.1, Lipase 60 07/05/24 16:45: Urine Color Straw, Urine Clarity Clear, Urine pH 7.0, Ur Specific [place] 1.005, Urine Protein 15 H, Urine Glucose (UA) 50 H, Urine Ketones Negative, Urine Occult Blood 10 H, Urine Nitrite Negative, Urine Bilirubin Negative, Urine Urobilinogen Normal, Ur Leukocyte Esterase 100 H, Urine RBC 0 SEEN, Urine WBC 10-25 SEEN, Ur Squamous Epith Cells 0-5 SEEN, Ur Renal Epithelial Cell 0-5 SEEN, Urine Bacteria RARE, Urine Mucus 0 SEEN Imaging Radiology Impression Abdomen/Pelvis CT 07/05/24 15:47 IMPRESSION: Colonic diverticulosis. Electronically Signed: Kalen Cotto DO at 17:09 EDT Reading Location ID and State: [facility] / [place] Tel [phone], Service support , Assessment & Plan Assessment/Plan (1) Intractable low back pain: (2) Lumbar radiculopathy, right: PLAN: Plan Patient is a 74-year-old female who presented [facility] ED on 07/05/2024 with worsening low back pain with radiculopathy. 1. Suspected acute on chronic low back pain with radiculopathy, history of L3-5 lumbar fusion surgery ? Admit under observation status to PCU. Orthopedic surgery and pain management consulted. Patient had L3-5 lumbar fusion surgery [facility] in 2020. Suspect that her worsening pain recently is due to worsening low back pain with radiculopathy. X-ray lumbar spine on 07/01 showed osteopenia with diffuse moderate to marked lower thoracic and lumbosacral spondylosis. Will defer to orthopedics and pain management on ordering MRI L-spine if needed. Will treat pain with IV Toradol x 3 doses, scheduled Tylenol, IV Solu-Medrol 20 mg every 8 hours, tramadol as needed and tizanidine as needed. Continue home gabapentin. Notably has significant nausea with opiates, would be cautious with using more than tramadol. Suspect steroid injection may be reasonable treatment for her so will hold her dose of Lovenox for DVT prophylaxis tomorrow and plan to start on Saturday. 2. Hypertension ? On home lisinopril 40 mg daily and indapamide 2.5 mg daily. Hypertensive to the 180s to 200 systolic in the ED. Suspect this is primarily due to pain. Continue home medications and IV hydralazine as needed ordered for systolic blood pressures greater than 170. 3. Type 2 diabetes mellitus ? Home regimen of NovoLog 70-30 insulin 26 units twice daily. Will treat with Lantus 20 units at night and sliding scale insulin with meals for now, adjust as needed. Chronic medical conditions: ? Anxiety: Continue home Ativan 0.5 mg twice daily as needed. ? GERD: Continue home PPI. ? Hypothyroidism: Continue home Synthroid. ? Hyperlipidemia: Continue home statin. DVT prophylaxis: Lovenox CODE STATUS: Full code, verified Expected disposition: Home, 1 to 2 days Total clinical time spent by myself addressing the patient's medical issues, reviewing all the data, and collaborating with patient's care team: 55 minutes. Charges/Coding Visit Charges Inpatient E&M: 94811 Init Hosp L2
[2024-07-05] MEDS: Ceftriaxone 1 GM/50 ML BAG IV (18:51)
[2024-07-05] MEDS: hydrALAZINE 20 MG/ML Vial 10 MG IV (19:18)
[2024-07-05 21:22] LABS: Bedside Glucose 160 mg/dL (74-106)
[2024-07-05] MEDS: proCHLORPERazine 10 MG/2 ML Vial 5 MG IV (21:42)
[2024-07-05] MEDS: 0.9% Saline Lock 10 ML Syringe IV (21:43)
[2024-07-05] MEDS: Ketorolac 15 MG/ML Vial IV (21:44)
[2024-07-05] MEDS: Insulin Lispro 100 UNIT/ML INSULN.PEN SC (21:49)
[2024-07-05] MEDS: Insulin Glargine-YFGN 100 UNIT/ML Pen 20 UNIT SC (21:50)
--- NOTE | 2024-07-06 02:10 | NURSING ---
This pt c/o nausea at this time and that she wants to go home. This RN offered to get zofran when it is due in about 20 minutes. Pt repeated wanting to leave, so this RN printed off AMA form. Attempted to advise pt against leaving AMA, but gave pt the choice. Pt took off tele, and did not say whether she wanted to leave or not for sure. When it was time to give zofran this RN asked if pt wants meds now multiple times, and she did not respond. She kept complaining that the hospital beds are too uncomfortable and that she wants to leave. Finally decided to try the Zofran and stay for now.
--- NOTE | 2024-07-06 02:15 | NURSING ---
Pt refusing to wear heart monitor at this time. MD will be made aware.
[2024-07-06] MEDS: 0.9% Saline Lock 10 ML Syringe IV ×4 (02:24→06:23)
[2024-07-06] MEDS: Ondansetron 4 MG/2 ML Vial IV (02:24)
[2024-07-06 03:00] VITALS: BP 192/85; PULSE 98; RESP 18; TEMP 36.2; O2SAT 99
[2024-07-06] MEDS: Ketorolac 15 MG/ML Vial IV (03:01)
[2024-07-06 03:06] VITALS: BP 192/85; PULSE 98
[2024-07-06] MEDS: hydrALAZINE 20 MG/ML Vial 10 MG IV (03:06)
[2024-07-06] MEDS: proCHLORPERazine 10 MG/2 ML Vial 5 MG IV (03:42)
[2024-07-06] MEDS: LORazepam 2 MG/ML Syringe 0.5 MG IV (03:55)
[2024-07-06 06:22] LABS: Hematocrit 45.6 % (37-47); Hemoglobin 14.8 g/dL (12.0-15.0); Mean Corp Hgb Conc 32.5 g/dL (32-36); Mean Corpuscular Hgb 28.8 pg (27.0-32.0); Mean Corpuscular Volume 88.7 fL (81-99); Mean Platelet Vol. 11.9 fl (6.2-12.0); Platelet Count 225 K/mm3 (150-450); RBC Distribution Width CV 13.2 % (11.6-14.6); RBC Distribution Width SD 42.6 fl (35.1-43.9); Red Blood Count 5.14 M/mm3 (4.2-5.4); White Blood Count 11.4 K/mm3 (4.4-11.0)
[2024-07-06] MEDS: Insulin Lispro 100 UNIT/ML INSULN.PEN SC (06:23)
[2024-07-06 06:40] LABS: International Normalized Ratio 1.1; Prothrombin Time (Protime)PT. 13.8 SECONDS (11.7-14.9)
[2024-07-06 06:43] LABS: Bedside Glucose 304 mg/dL (74-106)
[2024-07-06 06:56] LABS: Anion Gap 12 (5-15); BUN 23 mg/dL (7-18); BUN/Creat Ratio 23.9 RATIO (10-20); Calcium,Total 10.1 mg/dL (8.5-10.1); Chloride 102 mmol/L (98-107); Creatinine, Serum 0.96 mg/dL (0.55-1.02); EST Glomerular Filtration Rate 60 mL/min (>60); Est Glom Filt Rate - Afr Amer 73 mL/min (>60); Estimated Creatinine Clearance 49.24 ml/min; Glucose 320 mg/dL (74-106); Potassium 3.3 mmol/L (3.5-5.1); Sodium Level 139 mmol/L (136-145)
[2024-07-06 07:34] VITALS: O2SAT 95
--- NOTE | 2024-07-06 08:04 | NURSING ---
Patient insistent on leaving and refusing to wear cardiac monitor. Patient signed AMA paperwork, IV removed and copy of signed AMA form given to patient. Patient's spouse at bedside.
[2024-07-06 08:07] LABS: Hemoglobin A1c 6.9 % (3.8-5.6)
--- NOTE | 2024-07-06 08:22 | NURSING ---
Patient refused to stay and wait for MD to talk to her prior to leaving AMA.
--- NOTE | 2024-07-06 17:03 | PCM.DC.SUM ---
Providers Date of Admission: 07/05/24 Date of Discharge: 07/06/24 Primary Care Physician: Dr. Ene Angeles MD Consultations 07/05/24 19:50 Consult: Orthopedics Routine Consulting Provider: Cuba Rubalcava Reason for Consult: intractable low back pain w/ radiculopathy, h/o L3-5 fusion EMERGENT Consult: No MD Notified: Yes Date Notified: 07/06/24 Time Notified: 07:42 Method of Notification: Text Reason For Visit: INTRACTABLE ABD PAIN, RADICULOPATHY Diagnosis Discharge Diagnosis (1) Intractable low back pain: Status: Acute Code(s): M54.59 - Other low back pain (2) Lumbar radiculopathy, right: Status: Acute Code(s): M54.16 - Radiculopathy, lumbar region Medications at Discharge Home Medications gabapentin 600 mg tablet 600 mg PO TID 01/31/16 lisinopril 40 mg tablet 40 mg PO DAILY 01/31/16 lorazepam 0.5 mg tablet 0.5 mg PO BID PRN PRN Anxiety 01/31/16 pravastatin 40 mg tablet 40 mg PO QHS 01/31/16 tramadol 50 mg tablet 50 mg PO Q4H PRN PRN Pain 01/31/16 indapamide 2.5 mg tablet 2.5 mg PO DAILY 07/18/16 omeprazole 40 mg capsule,delayed release 40 mg PO DAILY 07/18/16 potassium chloride 10 mEq tablet,extended release (Klor-Con) 10 meq PO BID 07/18/16 insulin aspar prot-insulin aspart 100 unit/mL (70-30) subcutaneous pen (Novolog Mix 70-30FlexPen U-100) 26 unit subcut BID 04/25/21 meclizine 25 mg tablet 25 mg PO DAILY 04/25/21 tizanidine 2 mg capsule 2 mg PO Q8H PRN muscle spasticity 04/25/21 aspirin 81 mg tablet,delayed release (Adult Aspirin Regimen) 81 mg PO DAILY 07/04/22 ergocalciferol (vitamin D2) 1,250 mcg (50,000 unit) capsule 1,250 mcg PO QWEEK 07/04/22 levothyroxine 88 mcg tablet (Euthyrox) 88 mcg PO DAILY 07/04/22 meloxicam 15 mg tablet 15 mg PO DAILY 07/04/22 naproxen 500 mg tablet 500 mg PO BID 07/04/22 sitagliptin phosphate 100 mg tablet (Januvia) 100 mg PO DAILY 07/04/22 erythromycin 5 mg/gram (0.5 %) eye ointment 1 applic EACH EYE DAILY 07/05/24 hydrocodone-acetaminophen 5-325mg 5mg-325mg 1 tab PO Q6H PRN 07/05/24 ondansetron HCl 4 mg tablet 4 mg PO Q8H PRN 07/05/24 prednisone 10 mg tablet 10 mg PO DAILY 07/05/24 Hospital Course Procedures None Summary of Care Provided Minutes Spent on Discharge: 37 Hospital Course: Patient is a 74-year-old female with a past medical history as outlined was admitted through the ED on 07/05/2024 with a complaint of worsening low back pain with radiculopathy. Patient had a history of chronic back pain and and had an L3-5 lumbar fusion done in 2020 at [facility]. She says she had been doing well since then but 2 months ago she started having worsening pain primarily in the right lower back to the flank and wrapping around to the hip and into the groin. It worsened significantly about a week prior to this admission and also had some lower abdominal pain. She saw her primary care doctor who felt her symptoms were likely due to worsening low back pain with radiculopathy. She had x-ray of the lumbar spine done on 07/01/2024 which showed osteopenia with moderate diffuse lower thoracic and lumbosacral spondylosis. There is also showed moderate arthrosis of both hips and moderate amount of feces in the colon but was otherwise unremarkable. On admission in the ED she had CT of the abdomen and pelvis done which showed colonic diverticulosis with no evidence of diverticulitis. Urinalysis showed 100 leukocyte esterase but was otherwise negative. She was admitted and managed for intractable lower back pain. She was placed on IV fentanyl and Dilaudid in the ED. The opiates cause significant nausea for her. Patient and her were concerned about going home as the pain was not well-controlled so she was admitted to the hospital. She was able to tolerate Toradol and tramadol. She was admitted and managed for intractable lower back pain with concerns for radiculopathy. Orthopedics and pain management were consulted. On the morning of 07/06/2024, patient decided to sign out AGAINST MEDICAL ADVICE. She wanted follow-up with her doctors at [facility] and was not even willing to wait for this hospitalist to evaluate her before leaving. This hospitalist was therefore not able to see and evaluate patient and examined her prior to her signing out AGAINST MEDICAL ADVICE. Physical Exam Narrative Not done as patient signed out AGAINST MEDICAL ADVICE before this hospitalist could see her and examine her. Weight / BMI Weight Weight: 166 lb 3.657 oz Body Mass Index (BMI) 29.4 ABG / Lab / Microbiology Data 07/06/24 05:45 07/06/24 05:45 Laboratory: Laboratory Results - last 24 hr 07/05/24 16:45: Urine Color Straw, Urine Clarity Clear, Urine pH 7.0, Ur Specific Eagle 1.005, Urine Protein 15 H, Urine Glucose (UA) 50 H, Urine Ketones Negative, Urine Occult Blood 10 H, Urine Nitrite Negative, Urine Bilirubin Negative, Urine Urobilinogen Normal, Ur Leukocyte Esterase 100 H, Urine RBC 0 SEEN, Urine WBC 10-25 SEEN, Ur Squamous Epith Cells 0-5 SEEN, Ur Renal Epithelial Cell 0-5 SEEN, Urine Bacteria RARE, Urine Mucus 0 SEEN 07/05/24 20:08: POC Glucose 160 H 07/06/24 05:45: WBC 11.4 H, RBC 5.14, Hgb 14.8, Hct 45.6, MCV 88.7, MCH 28.8, MCHC 32.5, RDW Std Deviation 42.6, RDW Coeff of Mignon 13.2, Plt Count 225, MPV 11.9, PT 13.8, INR 1.1, Sodium 139, Potassium 3.3 L, Chloride 102, Carbon Dioxide 25.0, Anion Gap 12, BUN 23 H, Creatinine 0.96, Estim Creat Clear Calc 49.24, Est GFR (MDRD) Af Amer 73, Est GFR (MDRD) Non-Af 60, BUN/Creatinine Ratio 23.9 H, Glucose 320 H, Hemoglobin A1c 6.9 H, Calcium 10.1 07/06/24 06:21: POC Glucose 304 H Microbiology: Microbiology 07/05/24 16:42 Urine, Clean Catch Urine Culture - Preliminary Culture exhibits no growth. Radiography Diagnostic Testing: Radiology Impression Abdomen/Pelvis CT 07/05/24 15:47 IMPRESSION: Colonic diverticulosis. Electronically Signed: Kalen Cotto DO at 17:09 EDT Reading Location ID and State: [facility] / [place] Tel [phone], Service support , Meaningful Use Info Meaningful Use Meaningful Use Diagnoses (Choose all that apply): None applicable Ischemic Stroke Statin Dosing Therapy Reference: STATIN DOSE THERAPY REFERENCE: * Patients > 75 years receive moderate or high dose statin therapy. * Patients 75 years or YOUNGER should receive HIGH intensity statin dose unless contraindicated. You will be required to document reason for non-treatment if statin daily dose does not meet guidelines. HIGH DOSE STATIN THERAPY DAILY Atorvastatin > than or = to 40 mg Rosuvastatin > than or = to 20 mg Amlodipine + Atorvastatin > than or = to 2.5/40 mg Ezetimibe + Simvastatin 10/80 mg Simvastatin 80mg Discharge Plan Admission Admit Date/Time: 07/05/24 19:03 Primary Reason for Your Visit: intractable lower back pain Attending Provider: Angella Daniel Primary Care Provider: Ene Angeles Consulting Providers: Sb Chadwick; Cuba Rubalcava Discharge Orders/Prescriptions Prescriptions: No Action insulin asp prt-insulin aspart [Novolog Mix 70-30FlexPen U-100] 100 unit/mL (70-30) insulin pen 26 unit subcut BID Rx Instructions: PT STATES USES 26U FOR FIRST DAILY DOSE AND 36U FOR SECOND DOSE tizanidine 2 mg capsule 2 mg PO Q8H PRN (Reason: muscle spasticity) meclizine 25 mg tablet 25 mg PO DAILY levothyroxine [Euthyrox] 88 mcg tablet 88 mcg PO DAILY meloxicam 15 mg tablet 15 mg PO DAILY ergocalciferol (vitamin D2) 1,250 mcg (50,000 unit) capsule 1,250 mcg PO QWEEK naproxen 500 mg tablet 500 mg PO BID aspirin [Adult Aspirin Regimen] 81 mg tablet,delayed release (DR/EC) 81 mg PO DAILY gabapentin 600 MG tablet 600 mg PO TID Patient Comments: NERVE PAIN pravastatin 40 MG tablet 40 mg PO QHS Patient Comments: CHOLESTEROL LOWERING tramadol 50 MG tablet 50 mg PO Q4H PRN PRN (Reason: Pain) Patient Comments: PAIN lorazepam 0.5 MG tablet 0.5 mg PO BID PRN PRN (Reason: Anxiety) Patient Comments: ANXIETY lisinopril 40 MG tablet 40 mg PO DAILY Patient Comments: BLOOD PRESSURE Januvia 100 mg tablet 100 mg PO DAILY Patient Comments: DIABETES indapamide 2.5 MG tablet 2.5 mg PO DAILY Patient Comments: potassium chloride [Klor-Con 10] 10 MEQ tablet extended release 10 meq PO BID omeprazole 40 MG capsule,delayed release(DR/EC) 40 mg PO DAILY Patient Comments: hydrocodone-acetaminophen 5-325 mg tablet 1 tab PO Q6H PRN ondansetron HCl 4 mg tablet 4 mg PO Q8H PRN prednisone 10 mg tablet 10 mg PO DAILY erythromycin 5 mg/gram (0.5 %) ointment 1 applic EACH EYE DAILY Referrals / Follow Up: Ene Angeles MD [Primary Care Provider] - Disposition Disposition (needs filled in before D/C Order can be placed): Against Medical Advice Charges/Coding Visit Charges Inpatient E&M: 53357 Disch Hosp
== END 2024-07-06 08:21 | disposition left against medical advice (07) ==
LOC: ED 18:22 → MS3 18:58 → PCU 07-06 06:43 → MS3 07-06 09:11
PROVIDERS: Admitting Provider Hospitalist; Emergency Provider Emergency Medicine; PCP Family Medicine; Referring Provider Emergency Medicine; Visit Provider Student in an Organized Health Care Education/Training Program
DX: M47.27 Other spondylosis with radiculopathy, lumbosacral region (principal); E11.22 Type 2 diabetes mellitus with diabetic chronic kidney disease; E11.40 Type 2 diabetes mellitus with diabetic neuropathy, unspecified; Z79.4 Long term (current) use of insulin; E03.9 Hypothyroidism, unspecified; Z79.84 Long term (current) use of oral hypoglycemic drugs; I12.9 Hypertensive chronic kidney disease with stage 1 through stage 4 chronic kidney disease, or unspecified chronic kidney disease; M16.0 Bilateral primary osteoarthritis of hip; K57.30 Diverticulosis of large intestine without perforation or abscess without bleeding; K21.9 Gastro-esophageal reflux disease without esophagitis; N18.9 Chronic kidney disease, unspecified; E78.5 Hyperlipidemia, unspecified; F41.9 Anxiety disorder, unspecified; D47.2 Monoclonal gammopathy; Z79.899 Other long term (current) drug therapy; Z79.890 Hormone replacement therapy; Z79.82 Long term (current) use of aspirin; Z98.1 Arthrodesis status
CPT/HCPCS: 36415; 74177; 80048; 80053; 81001; 82962; 83036; 83690; 85025; 85027; 85610; 87086; 87088; 94668; 96365; 96375; 96376; 99221; 99284; J7030; J7050; Q9967; A4216; G0378; J2405

== ENCOUNTER → 2024-08-19 | Outpatient (CLI) | payer MEDICARE, BC, SELFPAY ==
--- NOTE | 2024-08-19 12:00 | CT_ITS ---
STUDY: CT LUMBAR SPINE WITH INTRATHECAL CONTRAST (LUMBAR CT MYELOGRAM) REASON FOR EXAM: Female, 74 years old. S/P LUMBAR FUSION RADIATION DOSAGE (If Supplied By Facility): CTDIvol = ( 18.56 ) mGy, DLP = ( 669.31 ) mGycm TECHNIQUE: Transaxial images were obtained from the L1 vertebra through the S1 vertebrae, following intrathecal administration of 10 ml of Isovue-M 200 contrast material, performed by Dr. Person. Please refer to this physicians technical notes for procedural details. Coronal and sagittal reconstructions were obtained. Individualized dose optimization techniques were used for this CT. COMPARISON: Comparison is made with prior lumbar myelogram done earlier today. FINDINGS: Normal lumbar lordosis. Mild degree of the levoconvex scoliosis. Multilevel spondylosis. The patient is status post laminectomy at the L3-L4 and L4-L5 levels with intraventricular screw and bong fixation. There is dependent layering of contrast material in the distal thecal sac. The conus medullaris terminates in a normal position at the L1-L2 level. L1-2: Moderate degree of disc space narrowing and spondylosis. Facet joint osteoarthritis hypertrophy. No significant stenosis seen. L2-3: Marked degree of disc space narrowing and spondylosis. Facet joint osteoarthritis and hypertrophy. Marked degree of bilateral neural foraminal stenosis. No significant spinal stenosis is seen. L3-4: Marked degree of disc space narrowing. Spondylosis. Prior laminectomy. There is a 5.7 mm rounded filling defect in the left side of the spinal canal just proximal to the L4-L5 disc space level. This may represent a swollen nerve root. Clinical correlation is recommended. L4-5: Moderate degree of disc space narrowing. Prior laminectomy. Interpedicular screw fixation. L5-S1: Marked degree of disc space narrowing. Spondylosis. Disc degeneration. Facet joint osteoarthritis. Normal visualized sacroiliac joints. Calcification of the abdominal aorta. CT/Spine Lumbar WITH Contrast IMPRESSION: Multiple findings as discussed above. Electronically Signed: Martin Person MD at 14:22 EST ,
[2024-08-19 12:22] VITALS: BP 172/95; PULSE 44; RESP 18; TEMP 36.7; O2SAT 98; BMI 28.5
--- NOTE | 2024-08-19 12:45 | RAD_ITS ---
PROCEDURE: LUMBAR MYELOGRAM DATE OF EXAMINATION: August 19, 2024. INDICATION: Female, 74 years old. Low back pain. Prior L3-L4 and L4-L5 laminectomy and fusion. PHYSICIAN: Martin Person M.D. CONSENT: The patient''s history and physical findings were reviewed. The lumbar myelogram procedure was discussed with the patient prior to signing a consent. SEDATION: Local anesthesia with 3 mL of 1% lidocaine was used. FLUOROSCOPY TIME (if supplied): (0:20) minutes/seconds. Injection Information: 10 cc of Isovue-M 200. Number of images obtained: 4 TECHNIQUE: Digital fluoroscopy was used to identify a safe approach for the lumbar myelogram. The back was prepped and draped in usual fashion. Local anesthesia was utilized. Under fluoroscopic guidance a 22-gauge spinal needle was inserted into the spinal canal at the L3-L4 level. Clear spinal fluid was seen.. 10 mL of Isovue 200 M was injected into the spinal canal. The tendons of prior laminectomy at the L3-L4 and L4-L5 levels. Interpedicular screw and bong fixation device seen. Anterior listhesis of L4 on L5. Multiple levels of disc space narrowing and spondylosis. There is a 4.6 mm by 26 mm polypoid filling defect along the left side at the L4-L5 level. This may represent an enlarged nerve root. CT scan will follow. RAD/Lumbar Myelogram IMPRESSION: Lumbar Myelogram as described. CT scan will follow. Electronically Signed: Martin Person MD at 13:26 EST ,
[2024-08-19] MEDS: Lidocaine 2% (5ml sdv) 5 ML VIAL.MPF INFILT (12:53)
[2024-08-19 13:17] VITALS: BP 162/84; PULSE 76; RESP 18; O2SAT 97
[2024-08-19 13:45] VITALS: BP 174/80; PULSE 62; RESP 18; O2SAT 98
== END | disposition home or self-care (01) ==
LOC: RAD 11:53
PROVIDERS: PCP Family Medicine; Referring Provider Orthopaedic Surgery Orthopaedic Surgery of the Spine; Visit Provider Orthopaedic Surgery Orthopaedic Surgery of the Spine
DX: Z98.1 Arthrodesis status (principal)
CPT/HCPCS: 62304; 72132

== ENCOUNTER → 2025-05-19 | Outpatient (CLI) | payer MEDICARE, BC, SELFPAY ==
[2025-05-19 12:43] LABS: Hematocrit 42.0 % (37-47); Hemoglobin 14.0 g/dL (12.0-15.0); Immature Granulocytes Count 0.030 X10^3/uL (0.0-0.0); Mean Corp Hgb Conc 33.3 g/dL (32-36); Mean Corpuscular Volume 90.7 fL (81-99); Mean Platelet Vol. 11.3 fl (6.2-12.0); NRBC Flagged by Analyzer 0 % (0-5); Platelet Count 229 K/mm3 (150-450); RBC Distribution Width CV 12.8 % (11.6-14.6); RBC Distribution Width SD 41.9 fl (35.1-43.9); Red Blood Count 4.63 M/mm3 (4.2-5.4); White Blood Count 9.1 K/mm3 (4.4-11.0)
[2025-05-19 13:08] LABS: Creatinine, Urine (random) 227.00 mg/dL (28.00-217.00); Microalbumin,Random Urine 58.8 mg/L (<20 mg/L)
[2025-05-19 13:16] LABS: AST(SGOT) 16 U/L (<=31); Alanine Aminotransfer ALT/SGPT 13 U/L (<=34); Albumin, Serum 4.1 g/dL (3.4-4.8); Alkaline Phosphatase 92 U/L (35-104); Anion Gap 11 (5-15); BUN 24 mg/dL (4-19); BUN/Creat Ratio 31.0 RATIO (10-20); Calcium,Total 9.7 mg/dL (7.6-11.0); Carbon Dioxide 25.7 mmol/L (21.0-32.0); Chloride 106 mmol/L (98-108); Globulin 2.6 g/dL (2.2-4.2); Glucose 148 mg/dL (70-99); Potassium 3.5 mmol/L (3.3-5.1)
[2025-05-19 13:48] LABS: Cholesterol 200 mg/dL (<=200); Low Density Lipoprotein Calc. 103 mg/dL; Triglycerides 272 mg/dL; Very Low Density Lipoprotein 54 mg/dL (5-40); cholesterol:hdl ratio screen 4.73
== END | disposition home or self-care (01) ==
PROVIDERS: PCP Family Medicine; Visit Provider Family Medicine
DX: E11.9 Type 2 diabetes mellitus without complications (principal); E03.9 Hypothyroidism, unspecified; I10 Essential (primary) hypertension
CPT/HCPCS: 36415; 80053; 80061; 82043; 82570; 84443; 85025

== ENCOUNTER → 2025-07-19 | Outpatient (CLI) | payer MEDICARE, BC, SELFPAY ==
--- NOTE | 2025-07-19 16:20 | BI_ITS ---
EXAM: SCRN MAMM (CAD)W/ROSALVA BILAT DATE: 07/19/2025 CLINICAL HISTORY: F, Age 75 y/o , SCREENING TECHNIQUE: Procedure Code: [id number] Modality: MG Procedure: SCRN MAMM (CAD)W/ROSALVA BILAT COMPARISON: Prior exam(s) dated 06/16/2024 and 06/12/2023. FINDINGS: TISSUE DENSITY: There are scattered areas of fibroglandular density. Bilateral Breast Mammographic Findings: No significant masses, calcifications or other abnormalities are identified. Benign-appearing round microcalcifications are seen in both breasts. Benign-appearing axillary lymph nodes are seen bilaterally. BI/SCRN MAMM (CAD)W/ROSALVA BILAT IMPRESSION: Benign screening mammogram. OVERALL FINAL ASSESSMENT BI-RADS 2: BENIGN RECOMMENDATION: Routine annual follow-up in 1 Year Additional Recommendation none A letter with findings and recommendations will be mailed to the patient. Reading Location: [id number]
--- NOTE | 2025-07-19 16:20 | BI_ITS ---
EXAM: SCRN MAMM (CAD)W/ROSALVA BILAT DATE: 07/19/2025 CLINICAL HISTORY: F, Age 75 y/o , SCREENING TECHNIQUE: Procedure Code: [id number] Modality: MG Procedure: SCRN MAMM (CAD)W/ROSALVA BILAT COMPARISON: Prior exam(s) dated 06/16/2024 and 06/12/2023. FINDINGS: TISSUE DENSITY: There are scattered areas of fibroglandular density. Bilateral Breast Mammographic Findings: No significant masses, calcifications or other abnormalities are identified. Benign-appearing round microcalcifications are seen in both breasts. Benign-appearing axillary lymph nodes are seen bilaterally. BI/SCRN MAMM (CAD)W/ROSALVA BILAT IMPRESSION: Benign screening mammogram. OVERALL FINAL ASSESSMENT BI-RADS 2: BENIGN RECOMMENDATION: Routine annual follow-up in 1 Year Additional Recommendation none A letter with findings and recommendations will be mailed to the patient. Reading Location: [id number]
== END | disposition home or self-care (01) ==
LOC: OPBI 16:10
PROVIDERS: PCP Family Medicine; Referring Provider Family Medicine; Visit Provider Family Medicine
DX: Z12.31 Encounter for screening mammogram for malignant neoplasm of breast (principal)
CPT/HCPCS: 77063; 77067